=== PATIENT | female | born 1945 | race Caucasian/White ===

== ENCOUNTER 2017-08-09 10:40 | Emergency (ER) | payer MEDICARE, OTHER ==
[2017-08-09] MEDS: SOD CHLORIDE 0.9% 1,000 ML IV (11:23)
[2017-08-09] MEDS: ONDANSETRON 4 MG INJ IV ×3 (11:24→13:02)
[2017-08-09] MEDS: morphine 4 MG/ML VIAL IV (11:24)
[2017-08-09 11:30] LABS: ADD MAN DIFF? NO
[2017-08-09 11:32] LABS: BASOPHIL # 0.1 10^3/ul (0.0-0.1); BASOPHILS % 0.8 % (0.0-2.0); EOSINOPHILS # 0.7 10^3/ul (0.0-0.5); EOSINOPHILS % 8.1 % (0.0-7.0); HEMATOCRIT 32.9 % (37.0-47.0); LYMPHOCYTES # 2.4 10^3/ul (0.8-2.9); LYMPHOCYTES % 26.4 % (15.0-51.0); MEAN CORPUSCULAR HGB CONC 30.4 g/dl (32.0-37.0); MEAN CORPUSCULAR VOLUME 82.3 fl (82.0-101.0); MEAN PLATELET VOLUME 10.3 fl (7.4-10.4); MONOCYTE # 0.7 10^3/ul (0.3-0.9); MONOCYTES % 7.5 % (0.0-11.0); NEUTROPHIL # 5.2 10^3/ul (1.6-7.5); PLATELET COUNT 308 10^3/UL (140-415); RED CELL DISTRIBUTION WIDTH 17.9 % (11.5-14.5)
[2017-08-09 11:32] LABS: WHITE BLOOD COUNT 9.1 10^3/ul (4.8-10.8)
[2017-08-09 11:52] LABS: ALANINE AMINOTRANSFERASE 24 IU/L (13-69); ALBUMIN 3.7 g/dl (3.3-4.9); ALBUMIN/GLOBULIN RATIO 1.23; ALKALINE PHOSPHATASE 77 IU/L (42-121); AMYLASE 73 U/L (11-123); ANION GAP 13 (8-16); ASPARTATE AMINO TRANSFERASE 19 IU/L (15-46); BLOOD UREA NITROGEN 20 mg/dl (7-20); CALCIUM 8.4 mg/dl (8.4-10.2); CARBON DIOXIDE 27 mmol/L (21-31); CHLORIDE 106 mmol/L (97-110); CREATININE 0.78 mg/dl (0.44-1.00); GLUCOSE 100 mg/dl (70-220); LIPASE 69 U/L (23-300); POTASSIUM 4.3 mmol/L (3.5-5.1); SODIUM 142 mmol/L (135-144); TOTAL PROTEIN 6.7 g/dl (6.1-8.1)
[2017-08-09 12:04] LABS: TROPONIN-I < 0.012 ng/ml (0.00-0.12)
[2017-08-09] MEDS: HYDROmorphONE 1 MG/ML SYG IV ×2 (12:32→13:02)
== END 2017-08-09 14:13 | disposition home or self-care (01) ==
LOC: E/R 10:40
DX: R53.1 Weakness (principal); M79.7 Fibromyalgia; J44.9 Chronic obstructive pulmonary disease, unspecified; F17.210 Nicotine dependence, cigarettes, uncomplicated; R40.2142 Coma scale, eyes open, spontaneous, at arrival to emergency department; R40.2252 Coma scale, best verbal response, oriented, at arrival to emergency department; R40.2362 Coma scale, best motor response, obeys commands, at arrival to emergency department; Z79.82 Long term (current) use of aspirin
CPT/HCPCS: 36415; 80053; 82150; 83690; 84484; 85025; 96374; 96375; 96376; 99284-25

== ENCOUNTER 2017-08-14 13:44 | Inpatient (IN) | payer MEDICARE, OTHER ==
[2017-08-14 17:56] LABS: ADD MAN DIFF? NO
[2017-08-14 18:00] LABS: WHITE BLOOD COUNT 18.3 10^3/ul (4.8-10.8)
[2017-08-14 18:00] LABS: BASOPHIL # 0.1 10^3/ul (0.0-0.1); BASOPHILS % 0.4 % (0.0-2.0); EOSINOPHILS # 0.4 10^3/ul (0.0-0.5); EOSINOPHILS % 2.2 % (0.0-7.0); HEMATOCRIT 34.6 % (37.0-47.0); HEMOGLOBIN 10.3 g/dl (12.0-16.0); LYMPHOCYTES # 2.9 10^3/ul (0.8-2.9); MEAN CORPUSCULAR HEMOGLOBIN 24.4 pg (29.0-33.0); MEAN CORPUSCULAR HGB CONC 29.8 g/dl (32.0-37.0); MONOCYTE # 1.2 10^3/ul (0.3-0.9); MONOCYTES % 6.8 % (0.0-11.0); NEUTROPHIL # 13.6 10^3/ul (1.6-7.5); NEUTROPHILS % 74.2 % (39.0-77.0); PLATELET COUNT 370 10^3/UL (140-415); RED BLOOD COUNT 4.22 10^6/ul (4.20-5.40); RED CELL DISTRIBUTION WIDTH 18.1 % (11.5-14.5)
[2017-08-14 18:20] LABS: ALANINE AMINOTRANSFERASE 24 IU/L (13-69); ALBUMIN/GLOBULIN RATIO 1.21; ALKALINE PHOSPHATASE 89 IU/L (42-121); ANION GAP 12 (8-16); ASPARTATE AMINO TRANSFERASE 15 IU/L (15-46); BILIRUBIN,INDIRECT 0.1 mg/dl (0-1.1); BILIRUBIN,TOTAL 0.1 mg/dl (0.2-1.3); BLOOD UREA NITROGEN 18 mg/dl (7-20); CALCIUM 8.7 mg/dl (8.4-10.2); CARBON DIOXIDE 28 mmol/L (21-31); CHLORIDE 108 mmol/L (97-110); CREATININE 0.92 mg/dl (0.44-1.00); GLUCOSE 96 mg/dl (70-220); POTASSIUM 3.6 mmol/L (3.5-5.1); SODIUM 144 mmol/L (135-144); TOTAL PROTEIN 7.3 g/dl (6.1-8.1)
[2017-08-14 18:43] LABS: TROPONIN-I < 0.012 ng/ml (0.00-0.12)
[2017-08-14 19:19] LABS: ADD UMIC YES; UR ASCORBIC ACID NEGATIVE (NEGATIVE); UR BACTERIA FEW /HPF (NONE SEEN); UR BILIRUBIN (Dip) NEGATIVE (NEGATIVE); UR BLOOD (Dip) 2+ mg/dL (NEGATIVE); UR CLARITY SLIGHTLY CLOUDY (CLEAR); UR COLOR YELLOW (YELLOW); UR GLUCOSE (Dip) NEGATIVE (NEGATIVE); UR KETONES (Dip) NEGATIVE (NEGATIVE); UR LEUKOCYTE ESTERASE (Dip) 1+ Leu/ul (NEGATIVE); UR NITRITE (Dip) NEGATIVE (NEGATIVE); UR RBC 147 /HPF (0-5); UR SPECIFIC GRAVITY (Dip) 1.014 (1.003-1.030); UR SQUAMOUS EPITHELIAL CELL MODERATE /HPF (FEW); UR TOTAL PROTEIN (Dip) 3+ mg/dl (NEGATIVE); UR UROBILINOGEN (Dip) 2+ mg/dL (NEGATIVE); UR WBC 44 /HPF (0-5)
[2017-08-14] MEDS: KETOROLAC 15 MG INJ IV (19:24)
[2017-08-14] MEDS ORDERED: ACETAMINOPHEN 325 MG TAB PO (19:30)
[2017-08-14] MEDS ORDERED: ONDANSETRON 4 MG INJ IV (19:30)
[2017-08-14] MEDS ORDERED: ALBUTEROL/IPRATROPIUM (NEB) 3 ML AMP HHN ×2 (22:00→23:07)
[2017-08-14] MEDS ORDERED: IPRATROPIUM (NEB) 0.5 MG/2.5 ML AMP HHN ×2 (22:00)
[2017-08-14] MEDS ORDERED: TIZANIDINE 4 MG TAB PO (22:30)
[2017-08-14] MEDS: DOCUSATE SODIUM 100 MG CAP PO (23:15)
[2017-08-14] MEDS: LEVOFLOXACIN 500MG/D5W (PMX) 100 ML IVPB (23:15)
[2017-08-14] MEDS: clonAZEPAM 0.5 MG TAB PO (23:16)
[2017-08-14] MEDS: ATORVASTATIN 40 MG TAB PO (23:16)
[2017-08-14] MEDS: hydrOXYzine HCL 25 MG TAB PO (23:16)
[2017-08-14] MEDS ORDERED: hydrOXYzine HCL 50 MG TAB PO (23:30)
[2017-08-14] MEDS ORDERED: ACETAMINOPHEN 500 MG TAB PO (23:30)
[2017-08-14] MEDS: ALBUTEROL/IPRATROPIUM (NEB) 3 ML AMP HHN (23:46)
[2017-08-15] MEDS: CELECOXIB 200 MG CAP PO ×3 (00:28→20:43)
[2017-08-15] MEDS: ARIPIPRAZOLE 5 MG TAB PO ×2 (00:28→20:47)
[2017-08-15] MEDS: ALBUTEROL/IPRATROPIUM (NEB) 3 ML AMP HHN ×4 (02:49→20:18)
[2017-08-15] MEDS: PANTOPRAZOLE (EC) 40 MG TAB PO (05:06)
[2017-08-15] MEDS: LORAZEPAM 2 MG INJ IV ×2 (05:06→14:49)
[2017-08-15 06:33] LABS: ADD MAN DIFF? NO
[2017-08-15 06:39] LABS: WHITE BLOOD COUNT 11.8 10^3/ul (4.8-10.8)
[2017-08-15 06:39] LABS: BASOPHILS % 0.3 % (0.0-2.0); EOSINOPHILS # 0.5 10^3/ul (0.0-0.5); EOSINOPHILS % 3.9 % (0.0-7.0); HEMATOCRIT 30.7 % (37.0-47.0); HEMOGLOBIN 9.6 g/dl (12.0-16.0); LYMPHOCYTES # 2.5 10^3/ul (0.8-2.9); LYMPHOCYTES % 21.1 % (15.0-51.0); MEAN CORPUSCULAR HEMOGLOBIN 25.1 pg (29.0-33.0); MEAN CORPUSCULAR HGB CONC 31.3 g/dl (32.0-37.0); MEAN CORPUSCULAR VOLUME 80.4 fl (82.0-101.0); MEAN PLATELET VOLUME 9.4 fl (7.4-10.4); MONOCYTE # 1.1 10^3/ul (0.3-0.9); NEUTROPHIL # 7.7 10^3/ul (1.6-7.5); NEUTROPHILS % 65.4 % (39.0-77.0); PLATELET COUNT 333 10^3/UL (140-415); RED BLOOD COUNT 3.82 10^6/ul (4.20-5.40); RED CELL DISTRIBUTION WIDTH 17.7 % (11.5-14.5)
[2017-08-15 07:06] LABS: ANION GAP 15 (8-16); BLOOD UREA NITROGEN 22 mg/dl (7-20); CALCIUM 8.8 mg/dl (8.4-10.2); CARBON DIOXIDE 23 mmol/L (21-31); CHLORIDE 109 mmol/L (97-110); CREATININE 0.82 mg/dl (0.44-1.00); GLUCOSE 94 mg/dl (70-220); POTASSIUM 3.6 mmol/L (3.5-5.1); SODIUM 143 mmol/L (135-144)
[2017-08-15 07:20] LABS: HEMOGLOBIN A1C 5.6 % (0-5.9)
[2017-08-15] MEDS: ESCITALOPRAM 10 MG TAB PO (08:36)
[2017-08-15] MEDS: DOCUSATE SODIUM 100 MG CAP PO ×2 (08:36→20:43)
[2017-08-15] MEDS: clonAZEPAM 0.5 MG TAB PO ×2 (08:36→20:40)
[2017-08-15] MEDS: ASPIRIN (EC) 325 MG TAB PO (08:36)
[2017-08-15] MEDS: AMLODIPINE 5 MG TAB PO (08:36)
[2017-08-15] MEDS: BENAZEPRIL 10 MG TAB PO (08:37)
[2017-08-15] MEDS: ISOSORBIDE MONONITRATE(SR)30 MG TAB PO (08:37)
[2017-08-15] MEDS: METHYLPREDNISOLONE 125 MG INJ IV (08:41)
[2017-08-15] MEDS: ENOXAPARIN 40 MG/0.4 ML SYG SC (08:43)
[2017-08-15] MEDS ORDERED: FUROSEMIDE 20 MG TAB PO (09:00)
[2017-08-15] MEDS ORDERED: METHYLPREDNISOLONE 125 MG INJ IV (09:00)
[2017-08-15] MEDS: oxyCODONE 5 MG TAB PO (18:01)
[2017-08-15 19:22] LABS: HEPATITIS B SURFACE ANTIBODY POSITIVE (NEGATIVE); HEPATITIS C VIRAL ANTIBODY NEGATIVE (NEGATIVE)
[2017-08-15 19:22] LABS: HIV 1&2 ANTIBODY NEGATIVE (NEGATIVE)
[2017-08-15] MEDS: ATORVASTATIN 40 MG TAB PO (20:43)
[2017-08-15] MEDS: hydrOXYzine HCL 25 MG TAB PO (20:43)
[2017-08-15] MEDS: LEVOFLOXACIN 500MG/D5W (PMX) 100 ML IVPB (22:46)
[2017-08-16] MEDS: oxyCODONE 5 MG TAB PO ×3 (01:07→23:24)
[2017-08-16] MEDS: ALBUTEROL/IPRATROPIUM (NEB) 3 ML AMP HHN ×4 (01:17→20:00)
[2017-08-16] MEDS: PANTOPRAZOLE (EC) 40 MG TAB PO (05:35)
[2017-08-16 06:18] LABS: ADD MAN DIFF? NO
[2017-08-16 06:26] LABS: BASOPHILS % 0.1 % (0.0-2.0); EOSINOPHILS % 0.3 % (0.0-7.0); HEMATOCRIT 29.1 % (37.0-47.0); LYMPHOCYTES # 2.1 10^3/ul (0.8-2.9); LYMPHOCYTES % 14.1 % (15.0-51.0); MEAN CORPUSCULAR HEMOGLOBIN 25.2 pg (29.0-33.0); MEAN CORPUSCULAR HGB CONC 30.9 g/dl (32.0-37.0); MEAN CORPUSCULAR VOLUME 81.5 fl (82.0-101.0); MEAN PLATELET VOLUME 10.5 fl (7.4-10.4); MONOCYTE # 1.2 10^3/ul (0.3-0.9); MONOCYTES % 7.8 % (0.0-11.0); NEUTROPHIL # 11.6 10^3/ul (1.6-7.5); NEUTROPHILS % 77.3 % (39.0-77.0); PLATELET COUNT 381 10^3/UL (140-415); RED BLOOD COUNT 3.57 10^6/ul (4.20-5.40); RED CELL DISTRIBUTION WIDTH 17.9 % (11.5-14.5)
[2017-08-16 06:26] LABS: WHITE BLOOD COUNT 15.1 10^3/ul (4.8-10.8)
[2017-08-16 07:15] LABS: LACTATE DEHYDROGENASE 272 IU/L (313-618)
[2017-08-16 07:18] LABS: IRON 13 ug/dl (35-150)
[2017-08-16 07:26] LABS: ANION GAP 12 (8-16); BLOOD UREA NITROGEN 21 mg/dl (7-20); CARBON DIOXIDE 27 mmol/L (21-31); CHLORIDE 106 mmol/L (97-110); CREATININE 0.85 mg/dl (0.44-1.00); GLUCOSE 104 mg/dl (70-220); POTASSIUM 4.1 mmol/L (3.5-5.1); SODIUM 141 mmol/L (135-144)
[2017-08-16 07:28] LABS: % IRON SATURATION 3 % SAT (22-52); TOTAL IRON BINDING CAPACITY 392 ug/dl (241-421)
[2017-08-16 07:29] LABS: RETICULOCYTE COUNT # 0.076 X10^6 (0.020-0.110); RETICULOCYTE COUNT % 2.1 % (0.5-1.5)
[2017-08-16 07:29] LABS: RETICULOCYTE RBC 3.57
[2017-08-16 07:31] LABS: THYROID STIMULATING HORMONE 0.588 MIU/L (0.465-4.680)
[2017-08-16 07:35] LABS: FERRITIN 3.2 ng/ml (11.1-264.0)
[2017-08-16] MEDS: ISOSORBIDE MONONITRATE(SR)30 MG TAB PO (08:51)
[2017-08-16] MEDS: CELECOXIB 200 MG CAP PO ×2 (08:51→20:08)
[2017-08-16] MEDS: ESCITALOPRAM 10 MG TAB PO (08:52)
[2017-08-16] MEDS: ASPIRIN (EC) 325 MG TAB PO (08:52)
[2017-08-16] MEDS: BENAZEPRIL 10 MG TAB PO (08:52)
[2017-08-16] MEDS: METHYLPREDNISOLONE 125 MG INJ IV (08:52)
[2017-08-16] MEDS: AMLODIPINE 5 MG TAB PO (08:53)
[2017-08-16] MEDS: clonAZEPAM 0.5 MG TAB PO ×2 (08:53→20:08)
[2017-08-16] MEDS: ENOXAPARIN 40 MG/0.4 ML SYG SC (08:54)
[2017-08-16] MEDS: DOCUSATE SODIUM 100 MG CAP PO ×2 (09:00→20:07)
[2017-08-16] MEDS: LORAZEPAM 1 MG TAB PO ×2 (11:35→17:53)
[2017-08-16] MEDS: NICOTINE (7 MG/24 HR) PATCH TRANSDERM (13:08)
[2017-08-16] MEDS: ARIPIPRAZOLE 5 MG TAB PO (20:08)
[2017-08-16] MEDS: ATORVASTATIN 40 MG TAB PO (20:08)
[2017-08-16] MEDS: hydrOXYzine HCL 25 MG TAB PO (20:08)
[2017-08-16] MEDS: LEVOFLOXACIN 500MG/D5W (PMX) 100 ML IVPB (23:16)
[2017-08-17] MEDS: LORAZEPAM 1 MG TAB PO ×2 (00:09→22:18)
[2017-08-17] MEDS: ALBUTEROL/IPRATROPIUM (NEB) 3 ML AMP HHN ×4 (01:37→20:05)
[2017-08-17] MEDS: PANTOPRAZOLE (EC) 40 MG TAB PO (06:14)
[2017-08-17 06:27] LABS: ADD MAN DIFF? NO
[2017-08-17 06:33] LABS: WHITE BLOOD COUNT 11.3 10^3/ul (4.8-10.8)
[2017-08-17 06:33] LABS: BASOPHIL # 0.1 10^3/ul (0.0-0.1); BASOPHILS % 0.5 % (0.0-2.0); EOSINOPHILS # 0.6 10^3/ul (0.0-0.5); EOSINOPHILS % 5.5 % (0.0-7.0); HEMATOCRIT 29.9 % (37.0-47.0); HEMOGLOBIN 9.3 g/dl (12.0-16.0); LYMPHOCYTES # 3.2 10^3/ul (0.8-2.9); LYMPHOCYTES % 28.4 % (15.0-51.0); MEAN CORPUSCULAR HEMOGLOBIN 25.3 pg (29.0-33.0); MEAN CORPUSCULAR HGB CONC 31.1 g/dl (32.0-37.0); MEAN CORPUSCULAR VOLUME 81.3 fl (82.0-101.0); MEAN PLATELET VOLUME 10.4 fl (7.4-10.4); MONOCYTE # 0.9 10^3/ul (0.3-0.9); MONOCYTES % 7.6 % (0.0-11.0); NEUTROPHIL # 6.5 10^3/ul (1.6-7.5); NEUTROPHILS % 57.6 % (39.0-77.0); PLATELET COUNT 396 10^3/UL (140-415); RED BLOOD COUNT 3.68 10^6/ul (4.20-5.40); RED CELL DISTRIBUTION WIDTH 17.8 % (11.5-14.5)
[2017-08-17 06:41] LABS: ANION GAP 15 (8-16); BLOOD UREA NITROGEN 24 mg/dl (7-20); CALCIUM 8.3 mg/dl (8.4-10.2); CARBON DIOXIDE 26 mmol/L (21-31); CHLORIDE 108 mmol/L (97-110); CREATININE 1.02 mg/dl (0.44-1.00); GLUCOSE 89 mg/dl (70-220); POTASSIUM 3.8 mmol/L (3.5-5.1); SODIUM 145 mmol/L (135-144)
[2017-08-17] MEDS: METHYLPREDNISOLONE 125 MG INJ IV (10:27)
[2017-08-17] MEDS: ASPIRIN (EC) 325 MG TAB PO (10:28)
[2017-08-17] MEDS: ISOSORBIDE MONONITRATE(SR)30 MG TAB PO (10:28)
[2017-08-17] MEDS: DOCUSATE SODIUM 100 MG CAP PO ×2 (10:28→20:39)
[2017-08-17] MEDS: CELECOXIB 200 MG CAP PO ×2 (10:28→20:38)
[2017-08-17] MEDS: clonAZEPAM 0.5 MG TAB PO ×2 (10:29→20:38)
[2017-08-17] MEDS: BENAZEPRIL 10 MG TAB PO (10:29)
[2017-08-17] MEDS: AMLODIPINE 5 MG TAB PO (10:29)
[2017-08-17] MEDS: ESCITALOPRAM 10 MG TAB PO (10:29)
[2017-08-17] MEDS: NICOTINE (7 MG/24 HR) PATCH TRANSDERM (10:30)
[2017-08-17] MEDS: traMADol 50 MG TAB PO (10:30)
[2017-08-17] MEDS: ENOXAPARIN 40 MG/0.4 ML SYG SC (10:31)
[2017-08-17] MEDS: oxyCODONE 5 MG TAB PO ×3 (13:32→22:18)
[2017-08-17] MEDS: ARIPIPRAZOLE 5 MG TAB PO (20:37)
[2017-08-17] MEDS: ATORVASTATIN 40 MG TAB PO (20:38)
[2017-08-17] MEDS: hydrOXYzine HCL 25 MG TAB PO (20:39)
[2017-08-17] MEDS: LEVOFLOXACIN 500MG/D5W (PMX) 100 ML IVPB (22:59)
[2017-08-18] MEDS: ALBUTEROL/IPRATROPIUM (NEB) 3 ML AMP HHN ×3 (02:33→14:00)
[2017-08-18] MEDS: PANTOPRAZOLE (EC) 40 MG TAB PO (05:48)
[2017-08-18 06:35] LABS: ADD MAN DIFF? NO
[2017-08-18 06:45] LABS: BASOPHILS % 0.2 % (0.0-2.0); EOSINOPHILS # 0.1 10^3/ul (0.0-0.5); EOSINOPHILS % 0.6 % (0.0-7.0); HEMATOCRIT 31.8 % (37.0-47.0); HEMOGLOBIN 9.6 g/dl (12.0-16.0); LYMPHOCYTES % 16.5 % (15.0-51.0); MEAN CORPUSCULAR HEMOGLOBIN 24.7 pg (29.0-33.0); MEAN CORPUSCULAR HGB CONC 30.2 g/dl (32.0-37.0); MEAN CORPUSCULAR VOLUME 81.7 fl (82.0-101.0); MONOCYTE # 0.8 10^3/ul (0.3-0.9); MONOCYTES % 6.9 % (0.0-11.0); NEUTROPHIL # 9.2 10^3/ul (1.6-7.5); NEUTROPHILS % 75.6 % (39.0-77.0); PLATELET COUNT 430 10^3/UL (140-415); RED BLOOD COUNT 3.89 10^6/ul (4.20-5.40); RED CELL DISTRIBUTION WIDTH 17.9 % (11.5-14.5)
[2017-08-18 06:45] LABS: WHITE BLOOD COUNT 12.2 10^3/ul (4.8-10.8)
[2017-08-18 07:06] LABS: ANION GAP 12 (8-16); BLOOD UREA NITROGEN 27 mg/dl (7-20); CALCIUM 8.9 mg/dl (8.4-10.2); CARBON DIOXIDE 24 mmol/L (21-31); CHLORIDE 109 mmol/L (97-110); CREATININE 0.93 mg/dl (0.44-1.00); GLUCOSE 92 mg/dl (70-220); POTASSIUM 3.7 mmol/L (3.5-5.1); SODIUM 141 mmol/L (135-144)
[2017-08-18] MEDS: LORAZEPAM 1 MG TAB PO (07:42)
[2017-08-18] MEDS: oxyCODONE 5 MG TAB PO (07:43)
[2017-08-18] MEDS: METHYLPREDNISOLONE 125 MG INJ IV (08:53)
[2017-08-18] MEDS: ASPIRIN (EC) 325 MG TAB PO (08:54)
[2017-08-18] MEDS: DOCUSATE SODIUM 100 MG CAP PO (08:54)
[2017-08-18] MEDS: ESCITALOPRAM 10 MG TAB PO (08:54)
[2017-08-18] MEDS: AMLODIPINE 5 MG TAB PO (08:55)
[2017-08-18] MEDS: BENAZEPRIL 10 MG TAB PO (08:55)
[2017-08-18] MEDS: ISOSORBIDE MONONITRATE(SR)30 MG TAB PO (08:55)
[2017-08-18] MEDS: clonAZEPAM 0.5 MG TAB PO (08:56)
[2017-08-18] MEDS: CELECOXIB 200 MG CAP PO (08:56)
[2017-08-18] MEDS: ENOXAPARIN 40 MG/0.4 ML SYG SC (08:57)
[2017-08-18] MEDS: NICOTINE (7 MG/24 HR) PATCH TRANSDERM (09:00)
[2017-08-18] MEDS: traMADol 50 MG TAB PO (12:59)
== END 2017-08-18 14:42 | disposition left against medical advice (07) | DRG 92 ==
LOC: E/R 13:44 → PP2 20:44
DX: R27.0 Ataxia, unspecified (principal); J44.1 Chronic obstructive pulmonary disease with (acute) exacerbation; N39.0 Urinary tract infection, site not specified; I10 Essential (primary) hypertension; Z91.81 History of falling; I25.10 Atherosclerotic heart disease of native coronary artery without angina pectoris; Z95.5 Presence of coronary angioplasty implant and graft; F41.9 Anxiety disorder, unspecified; F32.9 Major depressive disorder, single episode, unspecified; G89.4 Chronic pain syndrome; M79.7 Fibromyalgia; F31.9 Bipolar disorder, unspecified; F17.210 Nicotine dependence, cigarettes, uncomplicated; E78.5 Hyperlipidemia, unspecified
CPT/HCPCS: 70450; 71045; 72125; 80048; 80053; 81001; 82306; 82607; 82728; 82746; 83036; 83540; 83615; 84443; 84484; 85025; 85045; 86703; 86706; 86803; 87040; 87086; 93005; 94640; 96374; 97163; 99285-25; G0378

== ENCOUNTER 2018-02-01 08:29 | Inpatient (IN) | payer MEDICARE, OTHER ==
[2018-02-01 09:11] LABS: ADD MAN DIFF? NO
[2018-02-01 09:12] LABS: ABNORMAL IP MESSAGE 1; BASOPHIL # 0.1 10^3/ul (0.0-0.1); BASOPHILS % 0.4 % (0.0-2.0); EOSINOPHILS % 0.1 % (0.0-7.0); HEMATOCRIT 34.1 % (37.0-47.0); HEMOGLOBIN 9.6 g/dl (12.0-16.0); LYMPHOCYTES % 7.4 % (15.0-51.0); MEAN CORPUSCULAR HEMOGLOBIN 22.3 pg (29.0-33.0); MEAN CORPUSCULAR HGB CONC 28.2 g/dl (32.0-37.0); MEAN CORPUSCULAR VOLUME 79.1 fl (82.0-101.0); MEAN PLATELET VOLUME 9.5 fl (7.4-10.4); MONOCYTE # 0.9 10^3/ul (0.3-0.9); MONOCYTES % 7.2 % (0.0-11.0); NEUTROPHILS % 84.4 % (39.0-77.0); PLATELET COUNT 408 10^3/UL (140-415); RED BLOOD COUNT 4.31 10^6/ul (4.20-5.40); RED CELL DISTRIBUTION WIDTH 18.9 % (11.5-14.5)
[2018-02-01 09:56] LABS: LACTIC ACID 1.6 mmol/L (0.5-2.0)
[2018-02-01 09:57] LABS: ALANINE AMINOTRANSFERASE 11 IU/L (13-69); ALBUMIN 3.9 g/dl (3.3-4.9); ALBUMIN/GLOBULIN RATIO 1.11; ALKALINE PHOSPHATASE 98 IU/L (42-121); ANION GAP 11 (8-16); ASPARTATE AMINO TRANSFERASE 42 IU/L (15-46); BILIRUBIN,INDIRECT 0.4 mg/dl (0-1.1); BILIRUBIN,TOTAL 0.4 mg/dl (0.2-1.3); BLOOD UREA NITROGEN 16 mg/dl (7-20); CALCIUM 8.8 mg/dl (8.4-10.2); CARBON DIOXIDE 29 mmol/L (21-31); CHLORIDE 106 mmol/L (97-110); CREATINE KINASE 1037 IU/L (23-200); CREATININE 0.64 mg/dl (0.44-1.00); GLUCOSE 112 mg/dl (70-220); SODIUM 142 mmol/L (135-144); TOTAL PROTEIN 7.4 g/dl (6.1-8.1)
[2018-02-01] MEDS: SOD CHLORIDE 0.9% 1,000 ML IV ×4 (10:01→21:14)
[2018-02-01 10:08] LABS: CK INDEX 0.7; TROPONIN-I < 0.010 ng/ml (0.000-0.120)
[2018-02-01 10:53] LABS: INR 1.14; PROTIME 14.8 Sec (11.9-14.9); PT RATIO 1.2
[2018-02-01 10:54] LABS: PARTIAL THROMBOPLASTIN TIME 33.5 Sec (25.0-35.0)
[2018-02-01] MEDS: NALOXONE (0.4 MG/ML) INJ IV (12:00)
[2018-02-01] MEDS ORDERED: ONDANSETRON 4 MG INJ IV (12:30)
[2018-02-01] MEDS: morphine 2 MG INJ IV ×2 (17:02→21:14)
[2018-02-01] MEDS: ONDANSETRON 4 MG INJ IV (17:02)
[2018-02-01] MEDS: ACETAMINOPHEN 325 MG TAB PO (20:15)
[2018-02-01] MEDS ORDERED: hydrOXYzine HCL 50 MG TAB PO (21:00)
[2018-02-01] MEDS: CELECOXIB 200 MG CAP PO (22:40)
[2018-02-01] MEDS: DOCUSATE SODIUM 100 MG CAP PO (22:40)
[2018-02-01] MEDS: ARIPIPRAZOLE 5 MG TAB PO (22:40)
[2018-02-01] MEDS: ATORVASTATIN 40 MG TAB PO (22:41)
[2018-02-01] MEDS: ESCITALOPRAM 10 MG TAB PO (22:43)
[2018-02-01] MEDS: clonAZEPAM 0.5 MG TAB PO (22:44)
[2018-02-01] MEDS: BENAZEPRIL 10 MG TAB PO (22:51)
[2018-02-01] MEDS: AMLODIPINE 5 MG TAB PO (22:51)
[2018-02-02] MEDS: morphine 2 MG INJ IV (03:41)
[2018-02-02] MEDS: SOD CHLORIDE 0.9% 1,000 ML IV (06:25)
[2018-02-02] MEDS: PANTOPRAZOLE (EC) 40 MG TAB PO (06:25)
[2018-02-02 06:38] LABS: ADD MAN DIFF? NO
[2018-02-02 06:44] LABS: WHITE BLOOD COUNT 10.7 10^3/ul (4.8-10.8)
[2018-02-02 06:44] LABS: ABNORMAL IP MESSAGE 1; BASOPHIL # 0.1 10^3/ul (0.0-0.1); BASOPHILS % 0.7 % (0.0-2.0); EOSINOPHILS # 0.3 10^3/ul (0.0-0.5); EOSINOPHILS % 2.8 % (0.0-7.0); HEMATOCRIT 29.3 % (37.0-47.0); HEMOGLOBIN 8.1 g/dl (12.0-16.0); LYMPHOCYTES # 1.9 10^3/ul (0.8-2.9); MEAN CORPUSCULAR HGB CONC 27.6 g/dl (32.0-37.0); MEAN CORPUSCULAR VOLUME 79.4 fl (82.0-101.0); MEAN PLATELET VOLUME 9.7 fl (7.4-10.4); MONOCYTE # 1.2 10^3/ul (0.3-0.9); MONOCYTES % 10.9 % (0.0-11.0); NEUTROPHIL # 7.2 10^3/ul (1.6-7.5); NEUTROPHILS % 67.3 % (39.0-77.0); PLATELET COUNT 324 10^3/UL (140-415); RED BLOOD COUNT 3.69 10^6/ul (4.20-5.40)
[2018-02-02 06:45] LABS: POSITIVE DIFF @See below
[2018-02-02 06:58] LABS: HEMOGLOBIN A1C 5.6 % (0-5.9)
[2018-02-02 07:04] LABS: ALANINE AMINOTRANSFERASE 22 IU/L (13-69); ALBUMIN 3.1 g/dl (3.3-4.9); ALBUMIN/GLOBULIN RATIO 1.06; ALKALINE PHOSPHATASE 72 IU/L (42-121); ANION GAP 9 (8-16); ASPARTATE AMINO TRANSFERASE 47 IU/L (15-46); BILIRUBIN,INDIRECT 0.4 mg/dl (0-1.1); BILIRUBIN,TOTAL 0.4 mg/dl (0.2-1.3); BLOOD UREA NITROGEN 10 mg/dl (7-20); CALCIUM 7.9 mg/dl (8.4-10.2); CARBON DIOXIDE 27 mmol/L (21-31); CHLORIDE 109 mmol/L (97-110); CREATININE 0.56 mg/dl (0.44-1.00); GLUCOSE 88 mg/dl (70-220); POTASSIUM 3.7 mmol/L (3.5-5.1); SODIUM 141 mmol/L (135-144)
[2018-02-02 07:37] LABS: ADD UMIC YES; UR ASCORBIC ACID NEGATIVE (NEGATIVE); UR BACTERIA MODERATE /HPF (NONE SEEN); UR BILIRUBIN (Dip) NEGATIVE (NEGATIVE); UR BLOOD (Dip) 1+ mg/dL (NEGATIVE); UR CLARITY CLOUDY (CLEAR); UR COLOR YELLOW (YELLOW); UR GLUCOSE (Dip) NEGATIVE (NEGATIVE); UR KETONES (Dip) NEGATIVE (NEGATIVE); UR LEUKOCYTE ESTERASE (Dip) 3+ Leu/ul (NEGATIVE); UR MUCUS FEW /HPF (NONE SEEN); UR NITRITE (Dip) NEGATIVE (NEGATIVE); UR RBC 4 /HPF (0-5); UR SPECIFIC GRAVITY (Dip) 1.016 (1.003-1.030); UR SQUAMOUS EPITHELIAL CELL FEW /HPF (FEW); UR TOTAL PROTEIN (Dip) NEGATIVE (NEGATIVE); UR UROBILINOGEN (Dip) NEGATIVE (NEGATIVE); UR WBC > 182 /HPF (0-5)
[2018-02-02 07:51] LABS: AMPHETAMINE/METHAMPHETAMINE Negative (NEGATIVE); BARBITURATES Negative (NEGATIVE); BENZODIAZEPINES Positive (NEGATIVE); CANNABINOIDS Negative (NEGATIVE); COCAINE Negative (NEGATIVE); OPIATES Negative (NEGATIVE)
[2018-02-02] MEDS: clonAZEPAM 0.5 MG TAB PO ×2 (08:54→20:40)
[2018-02-02] MEDS: BENAZEPRIL 10 MG TAB PO (08:54)
[2018-02-02] MEDS: ISOSORBIDE MONONITRATE(SR)30 MG TAB PO (08:54)
[2018-02-02] MEDS: ESCITALOPRAM 10 MG TAB PO (08:55)
[2018-02-02] MEDS: AMLODIPINE 5 MG TAB PO (08:55)
[2018-02-02] MEDS: FUROSEMIDE 20 MG TAB PO (08:55)
[2018-02-02] MEDS: DOCUSATE SODIUM 100 MG CAP PO ×2 (08:55→20:38)
[2018-02-02] MEDS: ENOXAPARIN 30 MG/0.3 ML SYG SC (09:02)
[2018-02-02] MEDS: CELECOXIB 200 MG CAP PO ×2 (09:03→20:39)
[2018-02-02] MEDS: FUROSEMIDE 20 MG INJ IV (14:56)
[2018-02-02] MEDS: ARIPIPRAZOLE 5 MG TAB PO (20:38)
[2018-02-02] MEDS: ATORVASTATIN 40 MG TAB PO (20:38)
[2018-02-02] MEDS: hydrOXYzine HCL 25 MG TAB PO (20:40)
[2018-02-03] MEDS: TIZANIDINE 4 MG TAB PO (01:41)
[2018-02-03] MEDS: morphine 2 MG INJ IV ×3 (01:41→23:08)
[2018-02-03] MEDS: PANTOPRAZOLE (EC) 40 MG TAB PO (06:11)
[2018-02-03 06:33] LABS: ADD MAN DIFF? NO
[2018-02-03 06:38] LABS: WHITE BLOOD COUNT 9.3 10^3/ul (4.8-10.8)
[2018-02-03 06:38] LABS: ABNORMAL IP MESSAGE 1; BASOPHIL # 0.1 10^3/ul (0.0-0.1); BASOPHILS % 0.5 % (0.0-2.0); EOSINOPHILS # 0.3 10^3/ul (0.0-0.5); EOSINOPHILS % 3.7 % (0.0-7.0); HEMATOCRIT 27.8 % (37.0-47.0); HEMOGLOBIN 7.9 g/dl (12.0-16.0); LYMPHOCYTES # 2.2 10^3/ul (0.8-2.9); LYMPHOCYTES % 23.7 % (15.0-51.0); MEAN CORPUSCULAR HEMOGLOBIN 22.1 pg (29.0-33.0); MEAN CORPUSCULAR HGB CONC 28.4 g/dl (32.0-37.0); MEAN CORPUSCULAR VOLUME 77.9 fl (82.0-101.0); MEAN PLATELET VOLUME 10.2 fl (7.4-10.4); MONOCYTE # 1.1 10^3/ul (0.3-0.9); MONOCYTES % 11.5 % (0.0-11.0); NEUTROPHIL # 5.6 10^3/ul (1.6-7.5); NEUTROPHILS % 60.3 % (39.0-77.0); PLATELET COUNT 363 10^3/UL (140-415); RED BLOOD COUNT 3.57 10^6/ul (4.20-5.40)
[2018-02-03 06:51] LABS: POSITIVE DIFF @See below
[2018-02-03 07:06] LABS: ANION GAP 8 (8-16); BLOOD UREA NITROGEN 9 mg/dl (7-20); CALCIUM 8.1 mg/dl (8.4-10.2); CARBON DIOXIDE 31 mmol/L (21-31); CHLORIDE 103 mmol/L (97-110); CREATININE 0.81 mg/dl (0.44-1.00); GLUCOSE 86 mg/dl (70-220); POTASSIUM 3.3 mmol/L (3.5-5.1); SODIUM 139 mmol/L (135-144)
[2018-02-03] MEDS: ESCITALOPRAM 10 MG TAB PO (09:30)
[2018-02-03] MEDS: DOCUSATE SODIUM 100 MG CAP PO ×2 (09:30→21:29)
[2018-02-03] MEDS: AMLODIPINE 5 MG TAB PO (09:31)
[2018-02-03] MEDS: CELECOXIB 200 MG CAP PO ×2 (09:31→21:30)
[2018-02-03] MEDS: FUROSEMIDE 20 MG TAB PO (09:31)
[2018-02-03] MEDS: ISOSORBIDE MONONITRATE(SR)30 MG TAB PO (09:32)
[2018-02-03] MEDS: BENAZEPRIL 10 MG TAB PO (09:32)
[2018-02-03] MEDS: clonAZEPAM 0.5 MG TAB PO ×2 (09:34→21:30)
[2018-02-03] MEDS: ENOXAPARIN 30 MG/0.3 ML SYG SC (10:25)
[2018-02-03] MEDS: hydrOXYzine HCL 25 MG TAB PO (21:29)
[2018-02-03] MEDS: POTASSIUM CHLORIDE (SR) 20 MEQ TAB PO (21:29)
[2018-02-03] MEDS: ARIPIPRAZOLE 5 MG TAB PO (21:30)
[2018-02-03] MEDS: ATORVASTATIN 40 MG TAB PO (21:30)
[2018-02-04] MEDS: PANTOPRAZOLE (EC) 40 MG TAB PO (06:20)
[2018-02-04] MEDS: CELECOXIB 200 MG CAP PO ×2 (08:49→20:17)
[2018-02-04] MEDS: FUROSEMIDE 20 MG TAB PO (08:50)
[2018-02-04] MEDS: DOCUSATE SODIUM 100 MG CAP PO ×2 (08:50→20:17)
[2018-02-04] MEDS: BENAZEPRIL 10 MG TAB PO (08:50)
[2018-02-04] MEDS: ISOSORBIDE MONONITRATE(SR)30 MG TAB PO (08:50)
[2018-02-04] MEDS: clonAZEPAM 0.5 MG TAB PO ×2 (08:50→20:17)
[2018-02-04] MEDS: AMLODIPINE 5 MG TAB PO (08:50)
[2018-02-04] MEDS: ESCITALOPRAM 10 MG TAB PO (08:50)
[2018-02-04] MEDS: ENOXAPARIN 30 MG/0.3 ML SYG SC (09:02)
[2018-02-04] MEDS: morphine 2 MG INJ IV ×2 (13:18→21:39)
[2018-02-04] MEDS: ATORVASTATIN 40 MG TAB PO (20:17)
[2018-02-04] MEDS: ARIPIPRAZOLE 5 MG TAB PO (20:17)
[2018-02-04] MEDS: hydrOXYzine HCL 25 MG TAB PO (21:00)
[2018-02-05 05:42] LABS: ADD MAN DIFF? NO
[2018-02-05 06:00] LABS: ABNORMAL IP MESSAGE 1; BASOPHIL # 0.1 10^3/ul (0.0-0.1); BASOPHILS % 0.9 % (0.0-2.0); EOSINOPHILS # 0.4 10^3/ul (0.0-0.5); EOSINOPHILS % 5.5 % (0.0-7.0); HEMATOCRIT 30.1 % (37.0-47.0); HEMOGLOBIN 8.6 g/dl (12.0-16.0); LYMPHOCYTES # 2.1 10^3/ul (0.8-2.9); LYMPHOCYTES % 29.6 % (15.0-51.0); MEAN CORPUSCULAR HEMOGLOBIN 22.3 pg (29.0-33.0); MEAN CORPUSCULAR HGB CONC 28.6 g/dl (32.0-37.0); MEAN PLATELET VOLUME 10.3 fl (7.4-10.4); MONOCYTE # 0.9 10^3/ul (0.3-0.9); MONOCYTES % 12.2 % (0.0-11.0); NEUTROPHIL # 3.6 10^3/ul (1.6-7.5); NEUTROPHILS % 51.5 % (39.0-77.0); PLATELET COUNT 432 10^3/UL (140-415); RED BLOOD COUNT 3.86 10^6/ul (4.20-5.40); RED CELL DISTRIBUTION WIDTH 19.3 % (11.5-14.5)
[2018-02-05 06:00] LABS: WHITE BLOOD COUNT 7.1 10^3/ul (4.8-10.8)
[2018-02-05] MEDS: PANTOPRAZOLE (EC) 40 MG TAB PO (06:00)
[2018-02-05 06:14] LABS: POSITIVE DIFF @See below
[2018-02-05 06:32] LABS: ANION GAP 11 (8-16); BLOOD UREA NITROGEN 15 mg/dl (7-20); CALCIUM 8.4 mg/dl (8.4-10.2); CARBON DIOXIDE 30 mmol/L (21-31); CHLORIDE 106 mmol/L (97-110); CREATININE 0.74 mg/dl (0.44-1.00); GLUCOSE 90 mg/dl (70-220); POTASSIUM 3.5 mmol/L (3.5-5.1); SODIUM 143 mmol/L (135-144)
[2018-02-05] MEDS: AMLODIPINE 5 MG TAB PO (09:02)
[2018-02-05] MEDS: clonAZEPAM 0.5 MG TAB PO ×3 (09:02→20:49)
[2018-02-05] MEDS: CELECOXIB 200 MG CAP PO ×2 (09:02→20:50)
[2018-02-05] MEDS: DOCUSATE SODIUM 100 MG CAP PO ×2 (09:02→20:49)
[2018-02-05] MEDS: BENAZEPRIL 10 MG TAB PO (09:03)
[2018-02-05] MEDS: FUROSEMIDE 20 MG TAB PO (09:03)
[2018-02-05] MEDS: ISOSORBIDE MONONITRATE(SR)30 MG TAB PO (09:04)
[2018-02-05] MEDS: ESCITALOPRAM 10 MG TAB PO (09:04)
[2018-02-05] MEDS: ENOXAPARIN 30 MG/0.3 ML SYG SC (09:08)
[2018-02-05] MEDS: morphine LIQ (10 MG/5 ML) CUP PO ×2 (12:42→22:19)
[2018-02-05] MEDS: TIZANIDINE 4 MG TAB PO ×2 (14:46→22:02)
[2018-02-05 15:10] LABS: CREATINE KINASE 152 IU/L (23-200)
[2018-02-05] MEDS: ARIPIPRAZOLE 5 MG TAB PO (20:49)
[2018-02-05] MEDS: ATORVASTATIN 40 MG TAB PO (20:49)
[2018-02-05] MEDS: hydrOXYzine HCL 25 MG TAB PO (20:50)
[2018-02-05] MEDS: DIPHENHYDRAMINE 25 MG CAP PO (20:54)
[2018-02-06] MEDS: PANTOPRAZOLE (EC) 40 MG TAB PO (06:46)
[2018-02-06] MEDS: BENAZEPRIL 10 MG TAB PO (08:58)
[2018-02-06] MEDS: DOCUSATE SODIUM 100 MG CAP PO ×2 (08:58→21:10)
[2018-02-06] MEDS: FUROSEMIDE 20 MG TAB PO (08:58)
[2018-02-06] MEDS: morphine LIQ (10 MG/5 ML) CUP PO ×3 (08:58→22:40)
[2018-02-06] MEDS: clonAZEPAM 0.5 MG TAB PO ×2 (08:58→21:09)
[2018-02-06] MEDS: CELECOXIB 200 MG CAP PO ×2 (08:59→21:09)
[2018-02-06] MEDS: ESCITALOPRAM 10 MG TAB PO (08:59)
[2018-02-06] MEDS: ISOSORBIDE MONONITRATE(SR)30 MG TAB PO (08:59)
[2018-02-06] MEDS: AMLODIPINE 5 MG TAB PO (08:59)
[2018-02-06] MEDS: ENOXAPARIN 30 MG/0.3 ML SYG SC (09:08)
[2018-02-06] MEDS: TIZANIDINE 4 MG TAB PO ×2 (12:11→22:02)
[2018-02-06] MEDS: SOD CHLORIDE 0.9% 500 ML IV (15:51)
[2018-02-06] MEDS: ARIPIPRAZOLE 5 MG TAB PO (21:09)
[2018-02-06] MEDS: hydrOXYzine HCL 25 MG TAB PO (21:14)
[2018-02-06] MEDS: ATORVASTATIN 40 MG TAB PO (21:14)
[2018-02-06] MEDS: DIPHENHYDRAMINE 25 MG CAP PO (22:02)
[2018-02-07 05:02] LABS: ADD MAN DIFF? NO
[2018-02-07 05:08] LABS: WHITE BLOOD COUNT 8.5 10^3/ul (4.8-10.8)
[2018-02-07 05:08] LABS: ABNORMAL IP MESSAGE 1; BASOPHIL # 0.1 10^3/ul (0.0-0.1); BASOPHILS % 0.7 % (0.0-2.0); EOSINOPHILS # 0.4 10^3/ul (0.0-0.5); EOSINOPHILS % 4.6 % (0.0-7.0); HEMATOCRIT 30.9 % (37.0-47.0); HEMOGLOBIN 8.9 g/dl (12.0-16.0); LYMPHOCYTES # 2.6 10^3/ul (0.8-2.9); LYMPHOCYTES % 31.1 % (15.0-51.0); MEAN CORPUSCULAR HEMOGLOBIN 22.1 pg (29.0-33.0); MEAN CORPUSCULAR HGB CONC 28.8 g/dl (32.0-37.0); MEAN CORPUSCULAR VOLUME 76.7 fl (82.0-101.0); MEAN PLATELET VOLUME 9.6 fl (7.4-10.4); MONOCYTE # 0.8 10^3/ul (0.3-0.9); MONOCYTES % 9.3 % (0.0-11.0); NEUTROPHIL # 4.6 10^3/ul (1.6-7.5); NEUTROPHILS % 53.9 % (39.0-77.0); PLATELET COUNT 369 10^3/UL (140-415); RED BLOOD COUNT 4.03 10^6/ul (4.20-5.40); RED CELL DISTRIBUTION WIDTH 19.2 % (11.5-14.5)
[2018-02-07 05:13] LABS: POSITIVE DIFF @See below
[2018-02-07 05:28] LABS: ANION GAP 12 (8-16); BLOOD UREA NITROGEN 15 mg/dl (7-20); CALCIUM 8.9 mg/dl (8.4-10.2); CARBON DIOXIDE 29 mmol/L (21-31); CHLORIDE 105 mmol/L (97-110); CREATININE 0.84 mg/dl (0.44-1.00); GLUCOSE 90 mg/dl (70-220); POTASSIUM 3.8 mmol/L (3.5-5.1); SODIUM 142 mmol/L (135-144)
[2018-02-07] MEDS: PANTOPRAZOLE (EC) 40 MG TAB PO (06:31)
[2018-02-07] MEDS: morphine LIQ (10 MG/5 ML) CUP PO ×3 (06:31→14:27)
[2018-02-07] MEDS: DOCUSATE SODIUM 100 MG CAP PO ×3 (08:48→23:43)
[2018-02-07] MEDS: CELECOXIB 200 MG CAP PO ×3 (08:49→23:43)
[2018-02-07] MEDS: ESCITALOPRAM 10 MG TAB PO (08:49)
[2018-02-07] MEDS: ISOSORBIDE MONONITRATE(SR)30 MG TAB PO (08:49)
[2018-02-07] MEDS: AMLODIPINE 5 MG TAB PO (08:50)
[2018-02-07] MEDS: BENAZEPRIL 10 MG TAB PO (08:50)
[2018-02-07] MEDS: TIZANIDINE 4 MG TAB PO ×3 (08:50→23:42)
[2018-02-07] MEDS: clonAZEPAM 0.5 MG TAB PO ×3 (08:57→23:43)
[2018-02-07] MEDS: ENOXAPARIN 30 MG/0.3 ML SYG SC (08:59)
[2018-02-07] MEDS: FUROSEMIDE 20 MG TAB PO (09:00)
[2018-02-07] MEDS: hydrOXYzine HCL 25 MG TAB PO ×2 (21:00→23:42)
[2018-02-07] MEDS: ATORVASTATIN 40 MG TAB PO ×2 (21:00→23:43)
[2018-02-07] MEDS: ARIPIPRAZOLE 5 MG TAB PO ×2 (21:00→23:42)
[2018-02-07] MEDS ORDERED: LORAZEPAM 0.5 MG TAB PO (22:00)
[2018-02-07] MEDS ORDERED: LORAZEPAM 2 MG INJ IV (23:00)
[2018-02-07 23:14] LABS: RETICULOCYTE RBC 4.14
[2018-02-07 23:14] LABS: RETICULOCYTE COUNT # 0.082 X10^6 (0.020-0.110)
[2018-02-07] MEDS: LORAZEPAM 2 MG INJ IV (23:14)
[2018-02-07 23:37] LABS: IRON 16 ug/dl (35-150)
[2018-02-07 23:37] LABS: LACTATE DEHYDROGENASE 493 IU/L (313-618)
[2018-02-07 23:46] LABS: % IRON SATURATION 4 % SAT (22-52); TOTAL IRON BINDING CAPACITY 399 ug/dl (241-421)
[2018-02-08 00:12] LABS: FERRITIN 4.8 ng/ml (11.1-264.0)
[2018-02-08 00:45] LABS: FOLATE 14.5 ng/ml (2.8-20.0)
[2018-02-08] MEDS: NICOTINE (14 MG/24 HR) PATCH TRANSDERM ×2 (02:07→08:59)
[2018-02-08] MEDS: morphine LIQ (10 MG/5 ML) CUP PO ×3 (05:31→22:02)
[2018-02-08] MEDS: PANTOPRAZOLE (EC) 40 MG TAB PO (05:32)
[2018-02-08] MEDS: BENAZEPRIL 10 MG TAB PO (08:54)
[2018-02-08] MEDS: clonAZEPAM 0.5 MG TAB PO ×2 (08:55→20:13)
[2018-02-08] MEDS: CELECOXIB 200 MG CAP PO ×2 (08:55→20:13)
[2018-02-08] MEDS: DOCUSATE SODIUM 100 MG CAP PO ×2 (08:55→20:13)
[2018-02-08] MEDS: ESCITALOPRAM 10 MG TAB PO (08:55)
[2018-02-08] MEDS: ISOSORBIDE MONONITRATE(SR)30 MG TAB PO (08:56)
[2018-02-08] MEDS: AMLODIPINE 5 MG TAB PO (08:56)
[2018-02-08] MEDS: FUROSEMIDE 20 MG TAB PO (08:57)
[2018-02-08] MEDS: ENOXAPARIN 30 MG/0.3 ML SYG SC (09:00)
[2018-02-08 11:30] LABS: ADD MAN DIFF? NO
[2018-02-08 11:40] LABS: WHITE BLOOD COUNT 9.5 10^3/ul (4.8-10.8)
[2018-02-08 11:40] LABS: ABNORMAL IP MESSAGE 1; BASOPHIL # 0.1 10^3/ul (0.0-0.1); BASOPHILS % 0.6 % (0.0-2.0); EOSINOPHILS # 0.2 10^3/ul (0.0-0.5); EOSINOPHILS % 2.5 % (0.0-7.0); HEMATOCRIT 33.7 % (37.0-47.0); HEMOGLOBIN 9.6 g/dl (12.0-16.0); LYMPHOCYTES # 2.1 10^3/ul (0.8-2.9); LYMPHOCYTES % 21.7 % (15.0-51.0); MEAN CORPUSCULAR HEMOGLOBIN 21.8 pg (29.0-33.0); MEAN CORPUSCULAR HGB CONC 28.5 g/dl (32.0-37.0); MEAN CORPUSCULAR VOLUME 76.6 fl (82.0-101.0); MEAN PLATELET VOLUME 9.8 fl (7.4-10.4); MONOCYTE # 0.8 10^3/ul (0.3-0.9); MONOCYTES % 7.9 % (0.0-11.0); NEUTROPHIL # 6.4 10^3/ul (1.6-7.5); NEUTROPHILS % 67.1 % (39.0-77.0); PLATELET COUNT 450 10^3/UL (140-415); RED CELL DISTRIBUTION WIDTH 19.5 % (11.5-14.5)
[2018-02-08 11:44] LABS: POSITIVE DIFF @See below
[2018-02-08 12:06] LABS: ANION GAP 14 (8-16); BLOOD UREA NITROGEN 10 mg/dl (7-20); CALCIUM 9.3 mg/dl (8.4-10.2); CARBON DIOXIDE 28 mmol/L (21-31); CHLORIDE 103 mmol/L (97-110); CREATININE 0.68 mg/dl (0.44-1.00); GLUCOSE 92 mg/dl (70-220); POTASSIUM 3.8 mmol/L (3.5-5.1); SODIUM 141 mmol/L (135-144)
[2018-02-08] MEDS: SOD FERRIC GLUC COMPLX 125 MG in SOD CHLORIDE 0.9% 100 ML IVPB (17:12)
[2018-02-08] MEDS: ARIPIPRAZOLE 5 MG TAB PO (20:13)
[2018-02-08] MEDS: ATORVASTATIN 40 MG TAB PO (20:13)
[2018-02-08] MEDS: hydrOXYzine HCL 25 MG TAB PO (22:00)
[2018-02-09 05:22] LABS: ADD MAN DIFF? NO
[2018-02-09 05:30] LABS: ABNORMAL IP MESSAGE 1; BASOPHIL # 0.1 10^3/ul (0.0-0.1); BASOPHILS % 0.8 % (0.0-2.0); EOSINOPHILS # 0.4 10^3/ul (0.0-0.5); HEMATOCRIT 28.4 % (37.0-47.0); HEMOGLOBIN 8.2 g/dl (12.0-16.0); LYMPHOCYTES # 2.1 10^3/ul (0.8-2.9); LYMPHOCYTES % 28.8 % (15.0-51.0); MEAN CORPUSCULAR HGB CONC 28.9 g/dl (32.0-37.0); MEAN CORPUSCULAR VOLUME 76.3 fl (82.0-101.0); MEAN PLATELET VOLUME 9.9 fl (7.4-10.4); MONOCYTE # 0.9 10^3/ul (0.3-0.9); MONOCYTES % 11.5 % (0.0-11.0); NEUTROPHILS % 53.6 % (39.0-77.0); PLATELET COUNT 372 10^3/UL (140-415); RED BLOOD COUNT 3.72 10^6/ul (4.20-5.40); RED CELL DISTRIBUTION WIDTH 19.1 % (11.5-14.5)
[2018-02-09 05:30] LABS: WHITE BLOOD COUNT 7.4 10^3/ul (4.8-10.8)
[2018-02-09 05:44] LABS: ANION GAP 10 (8-16); BLOOD UREA NITROGEN 10 mg/dl (7-20); CALCIUM 8.6 mg/dl (8.4-10.2); CARBON DIOXIDE 31 mmol/L (21-31); CHLORIDE 103 mmol/L (97-110); CREATININE 0.68 mg/dl (0.44-1.00); GLUCOSE 91 mg/dl (70-220); POTASSIUM 3.3 mmol/L (3.5-5.1); SODIUM 141 mmol/L (135-144)
[2018-02-09 06:04] LABS: POSITIVE DIFF @See below
[2018-02-09] MEDS: PANTOPRAZOLE (EC) 40 MG TAB PO (07:00)
[2018-02-09] MEDS: FUROSEMIDE 20 MG TAB PO (09:00)
[2018-02-09] MEDS: morphine LIQ (10 MG/5 ML) CUP PO ×2 (09:23→15:10)
[2018-02-09] MEDS: CELECOXIB 200 MG CAP PO ×2 (09:23→20:05)
[2018-02-09] MEDS: ESCITALOPRAM 10 MG TAB PO (09:24)
[2018-02-09] MEDS: AMLODIPINE 5 MG TAB PO (09:25)
[2018-02-09] MEDS: ISOSORBIDE MONONITRATE(SR)30 MG TAB PO (09:26)
[2018-02-09] MEDS: DOCUSATE SODIUM 100 MG CAP PO ×2 (09:26→20:06)
[2018-02-09] MEDS: BENAZEPRIL 10 MG TAB PO (09:28)
[2018-02-09] MEDS: NICOTINE (14 MG/24 HR) PATCH TRANSDERM (09:30)
[2018-02-09] MEDS: ENOXAPARIN 30 MG/0.3 ML SYG SC (09:32)
[2018-02-09] MEDS: clonAZEPAM 0.5 MG TAB PO ×2 (09:51→20:06)
[2018-02-09] MEDS: POTASSIUM CHLORIDE 20 MEQ POWDER FOR ORAL SOLN PO (16:54)
[2018-02-09] MEDS: SOD FERRIC GLUC COMPLX 125 MG in SOD CHLORIDE 0.9% 100 ML IVPB (17:19)
[2018-02-09] MEDS: BISACODYL (EC) 5 MG TAB PO (17:19)
[2018-02-09] MEDS: ATORVASTATIN 40 MG TAB PO (20:05)
[2018-02-09] MEDS: hydrOXYzine HCL 25 MG TAB PO (20:06)
[2018-02-09] MEDS: ARIPIPRAZOLE 5 MG TAB PO (20:06)
[2018-02-09] MEDS: TIZANIDINE 4 MG TAB PO (20:06)
[2018-02-10] MEDS: PEG/ELECTROLYTES 4L BTL PO (02:06)
[2018-02-10 05:06] LABS: ADD MAN DIFF? NO
[2018-02-10] MEDS: PANTOPRAZOLE (EC) 40 MG TAB PO (05:09)
[2018-02-10 05:11] LABS: ABNORMAL IP MESSAGE 1; BASOPHIL # 0.1 10^3/ul (0.0-0.1); BASOPHILS % 1.2 % (0.0-2.0); EOSINOPHILS # 0.4 10^3/ul (0.0-0.5); EOSINOPHILS % 5.2 % (0.0-7.0); HEMATOCRIT 33.7 % (37.0-47.0); HEMOGLOBIN 9.5 g/dl (12.0-16.0); LYMPHOCYTES # 2.1 10^3/ul (0.8-2.9); LYMPHOCYTES % 27.5 % (15.0-51.0); MEAN CORPUSCULAR HEMOGLOBIN 22.1 pg (29.0-33.0); MEAN CORPUSCULAR HGB CONC 28.2 g/dl (32.0-37.0); MEAN CORPUSCULAR VOLUME 78.4 fl (82.0-101.0); MEAN PLATELET VOLUME 9.6 fl (7.4-10.4); MONOCYTE # 0.7 10^3/ul (0.3-0.9); MONOCYTES % 9.6 % (0.0-11.0); NEUTROPHIL # 4.3 10^3/ul (1.6-7.5); NEUTROPHILS % 56.2 % (39.0-77.0); PLATELET COUNT 428 10^3/UL (140-415); RED CELL DISTRIBUTION WIDTH 19.8 % (11.5-14.5)
[2018-02-10 05:11] LABS: WHITE BLOOD COUNT 7.7 10^3/ul (4.8-10.8)
[2018-02-10 05:17] LABS: POSITIVE DIFF @See below
[2018-02-10 05:39] LABS: ANION GAP 12 (8-16); BLOOD UREA NITROGEN 8 mg/dl (7-20); CARBON DIOXIDE 29 mmol/L (21-31); CHLORIDE 106 mmol/L (97-110); CREATININE 0.77 mg/dl (0.44-1.00); GLUCOSE 88 mg/dl (70-220); INR 1.02; POTASSIUM 3.9 mmol/L (3.5-5.1); PROTIME 13.5 Sec (11.9-14.9); PT RATIO 1.1; SODIUM 143 mmol/L (135-144)
[2018-02-10 05:40] LABS: PARTIAL THROMBOPLASTIN TIME 35.3 Sec (25.0-35.0)
[2018-02-10] MEDS: PROPOFOL 20 ML ×2 (07:33→08:59)
[2018-02-10] MEDS: FENTAnyl 50 MCG/ML VIAL (07:33)
[2018-02-10] MEDS ORDERED: HYDROmorphONE 1 MG/5 ML IV SYRINGE IV ×2 (08:40→09:00)
[2018-02-10] MEDS: HYDROmorphONE 1 MG/5 ML IV SYRINGE IV (08:55)
[2018-02-10] MEDS: CELECOXIB 200 MG CAP PO ×2 (09:00→21:19)
[2018-02-10] MEDS: ENOXAPARIN 30 MG/0.3 ML SYG SC (09:00)
[2018-02-10] MEDS: FUROSEMIDE 20 MG TAB PO (09:00)
[2018-02-10] MEDS: DOCUSATE SODIUM 100 MG CAP PO ×2 (09:00→21:19)
[2018-02-10] MEDS: ESCITALOPRAM 10 MG TAB PO (09:36)
[2018-02-10] MEDS: NICOTINE (14 MG/24 HR) PATCH TRANSDERM (09:37)
[2018-02-10] MEDS: clonAZEPAM 0.5 MG TAB PO ×2 (09:37→21:19)
[2018-02-10] MEDS: ISOSORBIDE MONONITRATE(SR)30 MG TAB PO (09:38)
[2018-02-10] MEDS: AMLODIPINE 5 MG TAB PO (09:39)
[2018-02-10] MEDS: BENAZEPRIL 10 MG TAB PO (09:39)
[2018-02-10] MEDS: morphine LIQ (10 MG/5 ML) CUP PO (15:54)
[2018-02-10] MEDS: SOD FERRIC GLUC COMPLX 125 MG in SOD CHLORIDE 0.9% 100 ML IVPB (17:49)
[2018-02-10] MEDS: LORAZEPAM 2 MG INJ IV (18:35)
[2018-02-10] MEDS: ARIPIPRAZOLE 5 MG TAB PO (21:19)
[2018-02-10] MEDS: ATORVASTATIN 40 MG TAB PO (21:19)
[2018-02-10] MEDS: hydrOXYzine HCL 25 MG TAB PO (21:19)
[2018-02-10] MEDS: NACL 0.9% 3 ML SYG IV (21:20)
[2018-02-11 05:27] LABS: ADD MAN DIFF? NO
[2018-02-11 05:34] LABS: ABNORMAL IP MESSAGE 1; BASOPHIL # 0.1 10^3/ul (0.0-0.1); BASOPHILS % 0.9 % (0.0-2.0); EOSINOPHILS # 0.3 10^3/ul (0.0-0.5); EOSINOPHILS % 4.2 % (0.0-7.0); HEMATOCRIT 29.8 % (37.0-47.0); HEMOGLOBIN 8.5 g/dl (12.0-16.0); LYMPHOCYTES # 1.7 10^3/ul (0.8-2.9); LYMPHOCYTES % 21.4 % (15.0-51.0); MEAN CORPUSCULAR HEMOGLOBIN 22.1 pg (29.0-33.0); MEAN CORPUSCULAR HGB CONC 28.5 g/dl (32.0-37.0); MEAN CORPUSCULAR VOLUME 77.6 fl (82.0-101.0); MEAN PLATELET VOLUME 9.9 fl (7.4-10.4); MONOCYTE # 0.8 10^3/ul (0.3-0.9); MONOCYTES % 9.9 % (0.0-11.0); NEUTROPHIL # 5.1 10^3/ul (1.6-7.5); NEUTROPHILS % 63.2 % (39.0-77.0); PLATELET COUNT 389 10^3/UL (140-415); RED BLOOD COUNT 3.84 10^6/ul (4.20-5.40); RED CELL DISTRIBUTION WIDTH 19.6 % (11.5-14.5)
[2018-02-11 05:34] LABS: WHITE BLOOD COUNT 8.1 10^3/ul (4.8-10.8)
[2018-02-11 05:48] LABS: POSITIVE DIFF @See below
[2018-02-11 06:06] LABS: ANION GAP 13 (8-16); BLOOD UREA NITROGEN 12 mg/dl (7-20); CALCIUM 8.7 mg/dl (8.4-10.2); CARBON DIOXIDE 26 mmol/L (21-31); CHLORIDE 110 mmol/L (97-110); CREATINE KINASE 28 IU/L (23-200); CREATININE 0.81 mg/dl (0.44-1.00); GLUCOSE 95 mg/dl (70-220); POTASSIUM 4.3 mmol/L (3.5-5.1); SODIUM 145 mmol/L (135-144)
[2018-02-11] MEDS: PANTOPRAZOLE (EC) 40 MG TAB PO (06:23)
[2018-02-11] MEDS: DOCUSATE SODIUM 100 MG CAP PO ×3 (08:58→20:21)
[2018-02-11] MEDS: CELECOXIB 200 MG CAP PO ×2 (08:58→20:20)
[2018-02-11] MEDS: clonAZEPAM 0.5 MG TAB PO ×2 (08:58→20:19)
[2018-02-11] MEDS: ISOSORBIDE MONONITRATE(SR)30 MG TAB PO (08:58)
[2018-02-11] MEDS: BENAZEPRIL 10 MG TAB PO (08:59)
[2018-02-11] MEDS: AMLODIPINE 5 MG TAB PO (08:59)
[2018-02-11] MEDS: FUROSEMIDE 20 MG TAB PO (09:00)
[2018-02-11] MEDS: ENOXAPARIN 30 MG/0.3 ML SYG SC (09:01)
[2018-02-11] MEDS: ESCITALOPRAM 10 MG TAB PO (09:36)
[2018-02-11] MEDS: morphine LIQ (10 MG/5 ML) CUP PO ×3 (10:15→21:26)
[2018-02-11] MEDS: NICOTINE (14 MG/24 HR) PATCH TRANSDERM (13:13)
[2018-02-11] MEDS: SOD FERRIC GLUC COMPLX 125 MG in SOD CHLORIDE 0.9% 100 ML IVPB (18:09)
[2018-02-11] MEDS: hydrOXYzine HCL 25 MG TAB PO (20:20)
[2018-02-11] MEDS: ARIPIPRAZOLE 5 MG TAB PO (20:20)
[2018-02-11] MEDS: ATORVASTATIN 40 MG TAB PO (20:20)
[2018-02-12] MEDS: PANTOPRAZOLE (EC) 40 MG TAB PO (05:44)
[2018-02-12] MEDS: clonAZEPAM 0.5 MG TAB PO ×2 (08:15→21:00)
[2018-02-12] MEDS: ISOSORBIDE MONONITRATE(SR)30 MG TAB PO (08:15)
[2018-02-12] MEDS: ESCITALOPRAM 10 MG TAB PO (08:15)
[2018-02-12] MEDS: DOCUSATE SODIUM 100 MG CAP PO ×2 (08:16→21:00)
[2018-02-12] MEDS: BENAZEPRIL 10 MG TAB PO (08:16)
[2018-02-12] MEDS: FUROSEMIDE 20 MG TAB PO (08:16)
[2018-02-12] MEDS: AMLODIPINE 5 MG TAB PO (08:16)
[2018-02-12] MEDS: CELECOXIB 200 MG CAP PO ×2 (08:16→21:00)
[2018-02-12] MEDS: NICOTINE (14 MG/24 HR) PATCH TRANSDERM (08:17)
[2018-02-12] MEDS: ENOXAPARIN 30 MG/0.3 ML SYG SC (08:18)
[2018-02-12] MEDS: morphine LIQ (10 MG/5 ML) CUP PO ×2 (08:19→18:38)
[2018-02-12] MEDS ORDERED: LORAZEPAM 0.5 MG TAB PO (12:00)
[2018-02-12] MEDS: SOD FERRIC GLUC COMPLX 125 MG in SOD CHLORIDE 0.9% 100 ML IVPB (16:43)
[2018-02-12] MEDS: hydrOXYzine HCL 25 MG TAB PO (21:00)
[2018-02-12] MEDS: ARIPIPRAZOLE 5 MG TAB PO (21:00)
[2018-02-12] MEDS: ATORVASTATIN 40 MG TAB PO (21:00)
[2018-02-12] MEDS: LORAZEPAM 1 MG TAB PO (21:03)
[2018-02-13] MEDS: morphine LIQ (10 MG/5 ML) CUP PO ×5 (02:23→22:38)
[2018-02-13] MEDS: PANTOPRAZOLE (EC) 40 MG TAB PO (05:34)
[2018-02-13] MEDS: CELECOXIB 200 MG CAP PO ×2 (08:03→21:08)
[2018-02-13] MEDS: DOCUSATE SODIUM 100 MG CAP PO ×2 (08:03→21:00)
[2018-02-13] MEDS: ESCITALOPRAM 10 MG TAB PO (08:03)
[2018-02-13] MEDS: clonAZEPAM 0.5 MG TAB PO ×2 (08:04→21:13)
[2018-02-13] MEDS: NICOTINE (14 MG/24 HR) PATCH TRANSDERM (08:04)
[2018-02-13] MEDS: FUROSEMIDE 20 MG TAB PO (08:04)
[2018-02-13] MEDS: AMLODIPINE 5 MG TAB PO (08:04)
[2018-02-13] MEDS: ISOSORBIDE MONONITRATE(SR)30 MG TAB PO (08:04)
[2018-02-13] MEDS: BENAZEPRIL 10 MG TAB PO (08:04)
[2018-02-13] MEDS: ENOXAPARIN 30 MG/0.3 ML SYG SC (08:06)
[2018-02-13 09:45] LABS: ADD MAN DIFF? NO
[2018-02-13 09:47] LABS: WHITE BLOOD COUNT 8.9 10^3/ul (4.8-10.8)
[2018-02-13 09:47] LABS: BASOPHIL # 0.1 10^3/ul (0.0-0.1); BASOPHILS % 0.9 % (0.0-2.0); EOSINOPHILS # 0.3 10^3/ul (0.0-0.5); EOSINOPHILS % 3.8 % (0.0-7.0); HEMOGLOBIN 10.8 g/dl (12.0-16.0); LYMPHOCYTES # 2.3 10^3/ul (0.8-2.9); LYMPHOCYTES % 26.1 % (15.0-51.0); MEAN CORPUSCULAR HEMOGLOBIN 22.8 pg (29.0-33.0); MEAN CORPUSCULAR HGB CONC 29.2 g/dl (32.0-37.0); MEAN CORPUSCULAR VOLUME 78.2 fl (82.0-101.0); MEAN PLATELET VOLUME 9.6 fl (7.4-10.4); MONOCYTE # 0.7 10^3/ul (0.3-0.9); MONOCYTES % 8.1 % (0.0-11.0); NEUTROPHIL # 5.4 10^3/ul (1.6-7.5); NEUTROPHILS % 60.9 % (39.0-77.0); PLATELET COUNT 417 10^3/UL (140-415); RED BLOOD COUNT 4.73 10^6/ul (4.20-5.40); RED CELL DISTRIBUTION WIDTH 20.7 % (11.5-14.5)
[2018-02-13] MEDS: ATORVASTATIN 40 MG TAB PO ×2 (21:00→21:08)
[2018-02-13] MEDS: ARIPIPRAZOLE 5 MG TAB PO (21:08)
[2018-02-13] MEDS: hydrOXYzine HCL 25 MG TAB PO (21:09)
[2018-02-14] MEDS: PANTOPRAZOLE (EC) 40 MG TAB PO (06:00)
[2018-02-14 06:05] LABS: ADD MAN DIFF? NO
[2018-02-14 06:07] LABS: WHITE BLOOD COUNT 8.2 10^3/ul (4.8-10.8)
[2018-02-14 06:07] LABS: ABNORMAL IP MESSAGE 1; BASOPHIL # 0.1 10^3/ul (0.0-0.1); BASOPHILS % 0.7 % (0.0-2.0); EOSINOPHILS # 0.4 10^3/ul (0.0-0.5); EOSINOPHILS % 4.8 % (0.0-7.0); HEMATOCRIT 32.1 % (37.0-47.0); HEMOGLOBIN 9.2 g/dl (12.0-16.0); IMMATURE GRANS #M 0.03 10^3/ul; IMMATURE GRANS % (M) 0.4 %; LYMPHOCYTES # 2.8 10^3/ul (0.8-2.9); LYMPHOCYTES % 34.8 % (15.0-51.0); MEAN CORPUSCULAR HEMOGLOBIN 22.8 pg (29.0-33.0); MEAN CORPUSCULAR HGB CONC 28.7 g/dl (32.0-37.0); MEAN CORPUSCULAR VOLUME 79.7 fl (82.0-101.0); MEAN PLATELET VOLUME 9.6 fl (7.4-10.4); MONOCYTE # 0.8 10^3/ul (0.3-0.9); MONOCYTES % 10.2 % (0.0-11.0); NEUTROPHILS % 49.1 % (39.0-77.0); PLATELET COUNT 349 10^3/UL (140-415); RED BLOOD COUNT 4.03 10^6/ul (4.20-5.40); RED CELL DISTRIBUTION WIDTH 20.6 % (11.5-14.5)
[2018-02-14 06:12] LABS: POSITIVE DIFF @See below
[2018-02-14 06:48] LABS: ANION GAP 11 (8-16); BLOOD UREA NITROGEN 17 mg/dl (7-20); CALCIUM 8.5 mg/dl (8.4-10.2); CARBON DIOXIDE 28 mmol/L (21-31); CHLORIDE 106 mmol/L (97-110); CREATININE 0.84 mg/dl (0.44-1.00); GLUCOSE 87 mg/dl (70-220); SODIUM 141 mmol/L (135-144)
[2018-02-14] MEDS: morphine LIQ (10 MG/5 ML) CUP PO ×3 (08:24→18:04)
[2018-02-14] MEDS: BENAZEPRIL 10 MG TAB PO (09:34)
[2018-02-14] MEDS: LORAZEPAM 1 MG TAB PO (09:34)
[2018-02-14] MEDS: AMLODIPINE 5 MG TAB PO (09:34)
[2018-02-14] MEDS: CELECOXIB 200 MG CAP PO ×2 (09:35→21:10)
[2018-02-14] MEDS: ESCITALOPRAM 10 MG TAB PO (09:35)
[2018-02-14] MEDS: ISOSORBIDE MONONITRATE(SR)30 MG TAB PO (09:35)
[2018-02-14] MEDS: DOCUSATE SODIUM 100 MG CAP PO ×2 (09:36→21:09)
[2018-02-14] MEDS: FUROSEMIDE 20 MG TAB PO (09:36)
[2018-02-14] MEDS: NICOTINE (14 MG/24 HR) PATCH TRANSDERM (09:37)
[2018-02-14] MEDS: ENOXAPARIN 30 MG/0.3 ML SYG SC (09:40)
[2018-02-14] MEDS: clonAZEPAM 0.5 MG TAB PO ×2 (09:46→21:09)
[2018-02-14] MEDS: ATORVASTATIN 40 MG TAB PO (21:00)
[2018-02-14] MEDS: ARIPIPRAZOLE 5 MG TAB PO (21:09)
[2018-02-14] MEDS: hydrOXYzine HCL 25 MG TAB PO (21:09)
[2018-02-15] MEDS: morphine LIQ (10 MG/5 ML) CUP PO ×2 (02:19→08:43)
[2018-02-15] MEDS: PANTOPRAZOLE (EC) 40 MG TAB PO (06:00)
[2018-02-15] MEDS: ESCITALOPRAM 10 MG TAB PO (08:15)
[2018-02-15] MEDS: BENAZEPRIL 10 MG TAB PO (08:15)
[2018-02-15] MEDS: AMLODIPINE 5 MG TAB PO (08:16)
[2018-02-15] MEDS: FUROSEMIDE 20 MG TAB PO (08:16)
[2018-02-15] MEDS: DOCUSATE SODIUM 100 MG CAP PO (08:16)
[2018-02-15] MEDS: CELECOXIB 200 MG CAP PO (08:16)
[2018-02-15] MEDS: ISOSORBIDE MONONITRATE(SR)30 MG TAB PO (08:16)
[2018-02-15] MEDS: clonAZEPAM 0.5 MG TAB PO (08:16)
[2018-02-15] MEDS: NICOTINE (14 MG/24 HR) PATCH TRANSDERM (08:16)
[2018-02-15] MEDS: ENOXAPARIN 30 MG/0.3 ML SYG SC (08:20)
[2018-02-15 14:06] LABS: ALBUMIN 3.8 g/dL (3.8-4.8); ALPHA-1-GLOBULINS 0.5 g/dL (0.2-0.3); ALPHA-2-GLOBULINS 0.8 g/dL (0.5-0.9); BETA 2 GLOBULINS 0.5 g/dL (0.2-0.5); BETA GLOBULINS 0.6 g/dL (0.4-0.6); GAMMA GLOBULINS 1.1 g/dL (0.8-1.7); HAPTOGLOBIN 166 mg/dL (43-212); PROTEIN, TOTAL 7.3 g/dL (6.1-8.1)
[2018-02-15 14:07] LABS: ERYTHROPOIETIN 82.2 mIU/mL (2.6-18.5)
== END 2018-02-15 12:50 | disposition left against medical advice (07) | DRG 563 ==
LOC: E/R 08:29 → MS1 02-04 12:21 → TEL 11:45
PROC: 0DJD8ZZ Inspection of Lower Intestinal Tract, Via Natural or Artificial Opening Endoscopic (ICD-10-PCS; principal; 2018-02-10 07:00)
PROC: 0DD68ZX Extraction of Stomach, Via Natural or Artificial Opening Endoscopic, Diagnostic (ICD-10-PCS; 2018-02-10 07:00)
DX: S52.572A Other intraarticular fracture of lower end of left radius, initial encounter for closed fracture (principal); M62.82 Rhabdomyolysis; F11.121 Opioid abuse with intoxication delirium; F33.9 Major depressive disorder, recurrent, unspecified; D50.9 Iron deficiency anemia, unspecified; Q27.33 Arteriovenous malformation of digestive system vessel; T40.601A Poisoning by unspecified narcotics, accidental (unintentional), initial encounter; R55 Syncope and collapse; Y92.009 Unspecified place in unspecified non-institutional (private) residence as the place of occurrence of the external cause; F41.9 Anxiety disorder, unspecified; D64.9 Anemia, unspecified; K29.70 Gastritis, unspecified, without bleeding; K44.9 Diaphragmatic hernia without obstruction or gangrene; K57.90 Diverticulosis of intestine, part unspecified, without perforation or abscess without bleeding; W18.30XA Fall on same level, unspecified, initial encounter; R27.8 Other lack of coordination; J44.9 Chronic obstructive pulmonary disease, unspecified; I25.10 Atherosclerotic heart disease of native coronary artery without angina pectoris; E78.5 Hyperlipidemia, unspecified; I10 Essential (primary) hypertension; K64.4 Residual hemorrhoidal skin tags
CPT/HCPCS: 70450; 72125; 72170; 73030; 73110-LT; 80048; 80053; 80307; 81001; 82550; 82553; 82607; 82668; 82728; 82746; 83010; 83036; 83540; 83605; 83615; 84155; 84165; 84443; 84484; 85025; 85045; 85610; 85730; 87040; 88305; 88312; 93005; 96360; 97116; 97162; 97530; 99291-25

== ENCOUNTER → 2018-07-15 | Outpatient (CLI) | payer MEDICARE, OTHER ==
[~2018-07-15] MED LIST: BARIUM SULF 2% 450 ML BTL (BERRY SMOOTHIE) PO
[2018-07-15] MEDS: SOD CHLORIDE 0.9% 100 ML (13:39)
[2018-07-15] MEDS: IOHEXOL 300MG/ML 150 ML BTL (13:40)
== END | disposition home or self-care (01) ==
LOC: C/S 11:15
DX: R10.9 Unspecified abdominal pain (principal); R63.0 Anorexia
CPT/HCPCS: 71260; 74177

== ENCOUNTER 2019-01-03 08:05 | Inpatient (IN) | payer MEDICARE, OTHER ==
[2019-01-03 09:33] LABS: HEMOGLOBIN 12.5 g/dl (12.0-16.0); MEAN CORPUSCULAR HEMOGLOBIN 24.3 pg (29.0-33.0); MEAN CORPUSCULAR HGB CONC 29.1 g/dl (32.0-37.0); MEAN CORPUSCULAR VOLUME 83.5 fl (82.0-101.0); MEAN PLATELET VOLUME 10.1 fl (7.4-10.4); PLATELET COUNT 466 10^3/UL (140-415); RED BLOOD COUNT 5.15 10^6/ul (4.20-5.40)
[2019-01-03 09:33] LABS: WHITE BLOOD COUNT 15.9 10^3/ul (4.8-10.8)
[2019-01-03 09:38] LABS: ADD MAN DIFF? YES
[2019-01-03 09:45] LABS: ALBUMIN/GLOBULIN RATIO 1.08; ALKALINE PHOSPHATASE 96 IU/L (42-121); ANION GAP 9 (5-13); ASPARTATE AMINO TRANSFERASE 32 IU/L (15-46); BILIRUBIN,INDIRECT 0.5 mg/dl (0-1.1); BILIRUBIN,TOTAL 0.5 mg/dl (0.2-1.3); BLOOD UREA NITROGEN 20 mg/dl (7-20); CALCIUM 8.9 mg/dl (8.4-10.2); CARBON DIOXIDE 35 mmol/L (21-31); CHLORIDE 102 mmol/L (97-110); CREATINE KINASE 585 IU/L (23-200); GLUCOSE 114 mg/dl (70-220); POTASSIUM 4.4 mmol/L (3.5-5.1); SODIUM 146 mmol/L (135-144); TOTAL PROTEIN 7.7 g/dl (6.1-8.1)
[2019-01-03 10:02] LABS: T3 UPTAKE 33.3 % (23.5-40.5)
[2019-01-03 10:03] LABS: T4 (THYROXINE) 8.1 ug/dl (5.5-11.0)
[2019-01-03 10:05] LABS: ALANINE AMINOTRANSFERASE < 6 IU/L (13-69)
[2019-01-03] MEDS: AZTREONAM 1 GM/NS (PMX) 50 ML IVPB ×2 (10:05→10:48)
[2019-01-03] MEDS: SOD CHLORIDE 0.9% 1,000 ML IV ×4 (10:06→19:05)
[2019-01-03] MEDS: CLINDAMYCIN 900 MG/D5W (PMX) 50 ML IVPB (10:53)
[2019-01-03 10:55] LABS: ANISOCYTOSIS 2+ (0-0); BAND NEUTROPHILS #M 0.4 10^3/ul (0.0-0.6); BAND NEUTROPHILS % (M) 3 % (0-4); BASOPHIL #M 0.3 10^3/ul (0.0-0.0); BASOPHILS % (M) 2 % (0-2); HYPOCHROMASIA 1+ (0-0); LYMPHOCYTES #M 0.9 10^3/ul (0.8-2.9); LYMPHOCYTES % (M) 6 % (15-51); MICROCYTOSIS 1+ (0-0); MONOCYTE #M 1.1 10^3/ul (0.3-0.9); MONOCYTES % (M) 7 % (0-11); OVALOCYTES 1+ (0-0); PLATELET ESTIMATE INCREASED; POIKILOCYTOSIS 2+ (0-0); POLYCHROMASIA 3+ (0-0); SEG NEUT #M 13.1 10^3/ul (1.6-7.5); SEGMENTED NEUTROPHILS (M) % 82 % (39-77); SMUDGE%M 8 % (0-0)
[2019-01-03] MEDS ORDERED: ACETAMINOPHEN 325 MG TAB PO (11:00)
[2019-01-03] MEDS ORDERED: ONDANSETRON 4 MG INJ IV ×2 (11:00→11:30)
[2019-01-03] MEDS: LACTATED RINGER'S 1,000 ML IV (11:23)
[2019-01-03] MEDS: ASPIRIN 81 MG TAB PO (11:27)
[2019-01-03] MEDS ORDERED: NACL 0.9% 3 ML SYG IV (11:30)
[2019-01-03] MEDS: VANCOMYCIN 1 GM (PMX) 250 ML IVPB (12:12)
[2019-01-03 14:49] LABS: ADD UMIC YES; UR ASCORBIC ACID NEGATIVE (NEGATIVE); UR BACTERIA FEW /HPF (NONE SEEN); UR BILIRUBIN (Dip) NEGATIVE (NEGATIVE); UR BLOOD (Dip) NEGATIVE (NEGATIVE); UR CLARITY CLOUDY (CLEAR); UR COLOR AMBER (YELLOW); UR GLUCOSE (Dip) NEGATIVE (NEGATIVE); UR KETONES (Dip) NEGATIVE (NEGATIVE); UR LEUKOCYTE ESTERASE (Dip) 2+ Leu/ul (NEGATIVE); UR MUCUS MANY /HPF (NONE SEEN); UR NITRITE (Dip) NEGATIVE (NEGATIVE); UR RBC 16 /HPF (0-5); UR SPECIFIC GRAVITY (Dip) 1.018 (1.003-1.030); UR SQUAMOUS EPITHELIAL CELL MANY /HPF (FEW); UR TOTAL PROTEIN (Dip) NEGATIVE (NEGATIVE); UR TRANSITIONAL EPI CELL FEW /HPF (NONE SEEN); UR UROBILINOGEN (Dip) NEGATIVE (NEGATIVE); UR WBC 42 /HPF (0-5)
[2019-01-03] MEDS: AZTREONAM 2 GM in DEXTROSE 5% 100 ML IVPB ×2 (16:00→21:59)
[2019-01-03 16:19] LABS: LACTIC ACID 1.9 mmol/L (0.5-2.0)
[2019-01-03] MEDS: PETROLATUM 5 GM OINT TOP ×2 (16:28→21:58)
[2019-01-03 17:02] LABS: CREATINE KINASE 589 IU/L (23-200)
[2019-01-03 17:15] LABS: CK INDEX 0.8; CK-MB 4.46 ng/ml (0.0-2.4)
[2019-01-03 17:24] LABS: TROPONIN-I 0.125 ng/ml (0.000-0.120)
[2019-01-03 21:05] LABS: CREATINE KINASE 533 IU/L (23-200)
[2019-01-03] MEDS: FAMOTIDINE 20 MG INJ IV (21:12)
[2019-01-03 21:13] LABS: PREALBUMIN 8.1 mg/dl (17.6-36.0)
[2019-01-03 21:18] LABS: CK INDEX 0.7; CK-MB 3.86 ng/ml (0.0-2.4); TROPONIN-I 0.129 ng/ml (0.000-0.120)
[2019-01-04] MEDS: SOD CHLORIDE 0.9% 1,000 ML IV ×4 (03:05→14:47)
[2019-01-04 05:51] LABS: ADD MAN DIFF? NO
[2019-01-04 06:05] LABS: BASOPHIL # 0.1 10^3/ul (0.0-0.1); BASOPHILS % 0.9 % (0.0-2.0); EOSINOPHILS # 0.3 10^3/ul (0.0-0.5); EOSINOPHILS % 2.8 % (0.0-7.0); HEMATOCRIT 35.1 % (37.0-47.0); HEMOGLOBIN 10.2 g/dl (12.0-16.0); LYMPHOCYTES # 2.2 10^3/ul (0.8-2.9); LYMPHOCYTES % 22.2 % (15.0-51.0); MEAN CORPUSCULAR HEMOGLOBIN 24.2 pg (29.0-33.0); MEAN CORPUSCULAR HGB CONC 29.1 g/dl (32.0-37.0); MEAN CORPUSCULAR VOLUME 83.2 fl (82.0-101.0); MEAN PLATELET VOLUME 10.1 fl (7.4-10.4); MONOCYTE # 0.9 10^3/ul (0.3-0.9); MONOCYTES % 9.1 % (0.0-11.0); NEUTROPHIL # 6.4 10^3/ul (1.6-7.5); NEUTROPHILS % 64.7 % (39.0-77.0); PLATELET COUNT 361 10^3/UL (140-415); RED BLOOD COUNT 4.22 10^6/ul (4.20-5.40); RED CELL DISTRIBUTION WIDTH 18.9 % (11.5-14.5)
[2019-01-04 06:05] LABS: WHITE BLOOD COUNT 9.9 10^3/ul (4.8-10.8)
[2019-01-04 06:49] LABS: ALANINE AMINOTRANSFERASE 15 IU/L (13-69); ALBUMIN 2.8 g/dl (3.3-4.9); ALBUMIN/GLOBULIN RATIO 0.93; ALKALINE PHOSPHATASE 66 IU/L (42-121); ANION GAP 4 (5-13); ASPARTATE AMINO TRANSFERASE 27 IU/L (15-46); BILIRUBIN,INDIRECT 0.3 mg/dl (0-1.1); BILIRUBIN,TOTAL 0.3 mg/dl (0.2-1.3); BLOOD UREA NITROGEN 15 mg/dl (7-20); CALCIUM 7.8 mg/dl (8.4-10.2); CARBON DIOXIDE 29 mmol/L (21-31); CHLORIDE 109 mmol/L (97-110); CREATININE 0.44 mg/dl (0.44-1.00); GLUCOSE 81 mg/dl (70-220); POTASSIUM 3.8 mmol/L (3.5-5.1); SODIUM 142 mmol/L (135-144); TOTAL PROTEIN 5.8 g/dl (6.1-8.1)
[2019-01-04] MEDS: AZTREONAM 2 GM in SOD CHLORIDE 0.9% 100 ML IVPB ×3 (07:41→22:00)
[2019-01-04] MEDS: ASPIRIN 81 MG TAB PO (08:18)
[2019-01-04] MEDS: FAMOTIDINE 20 MG INJ IV (08:19)
[2019-01-04] MEDS: PETROLATUM 5 GM OINT TOP ×2 (08:19→21:00)
[2019-01-04] MEDS: ENOXAPARIN 30 MG/0.3 ML SYG SC (08:25)
[2019-01-04] MEDS: clonAZEPAM 0.5 MG TAB PO (20:11)
[2019-01-04] MEDS: ATORVASTATIN 40 MG TAB PO (21:00)
[2019-01-04] MEDS: BALSAM PERU/CASTOR OIL 60 GM TUBE TOP (21:00)
[2019-01-04] MEDS: FAMOTIDINE 20 MG TAB PO (21:00)
[2019-01-04] MEDS: CEFUROXIME 250 MG TAB PO (23:15)
[2019-01-05] MEDS: SOD CHLORIDE 0.9% 1,000 ML IV ×3 (03:05→19:05)
[2019-01-05] MEDS: AZTREONAM 2 GM in SOD CHLORIDE 0.9% 100 ML IVPB ×2 (06:00→14:00)
[2019-01-05] MEDS: BALSAM PERU/CASTOR OIL 60 GM TUBE TOP ×2 (08:55→20:27)
[2019-01-05] MEDS: PETROLATUM 5 GM OINT TOP ×2 (08:55→20:26)
[2019-01-05] MEDS: ESCITALOPRAM 10 MG TAB PO (08:58)
[2019-01-05] MEDS: AZITHROMYCIN 250 MG TAB PO (08:58)
[2019-01-05] MEDS: ATENOLOL 25 MG TAB PO (08:59)
[2019-01-05] MEDS: clonAZEPAM 0.5 MG TAB PO ×2 (08:59→20:24)
[2019-01-05] MEDS: BENAZEPRIL 10 MG TAB PO (08:59)
[2019-01-05] MEDS ORDERED: AMLODIPINE 5 MG TAB PO (09:00)
[2019-01-05] MEDS: PANTOPRAZOLE (EC) 40 MG TAB PO (09:00)
[2019-01-05] MEDS: ENOXAPARIN 30 MG/0.3 ML SYG SC (09:00)
[2019-01-05] MEDS: ASPIRIN (EC) 81 MG TAB PO (09:00)
[2019-01-05] MEDS: FAMOTIDINE 20 MG TAB PO ×2 (09:00→20:24)
[2019-01-05] MEDS: CEFUROXIME 250 MG TAB PO (09:02)
[2019-01-05 11:02] LABS: ADD MAN DIFF? NO
[2019-01-05 11:05] LABS: WHITE BLOOD COUNT 10.2 10^3/ul (4.8-10.8)
[2019-01-05 11:05] LABS: BASOPHIL # 0.1 10^3/ul (0.0-0.1); BASOPHILS % 0.6 % (0.0-2.0); EOSINOPHILS # 0.2 10^3/ul (0.0-0.5); EOSINOPHILS % 2.2 % (0.0-7.0); HEMATOCRIT 35.1 % (37.0-47.0); HEMOGLOBIN 10.5 g/dl (12.0-16.0); LYMPHOCYTES # 1.4 10^3/ul (0.8-2.9); LYMPHOCYTES % 13.4 % (15.0-51.0); MEAN CORPUSCULAR HEMOGLOBIN 24.4 pg (29.0-33.0); MEAN CORPUSCULAR HGB CONC 29.9 g/dl (32.0-37.0); MEAN CORPUSCULAR VOLUME 81.4 fl (82.0-101.0); MEAN PLATELET VOLUME 9.5 fl (7.4-10.4); MONOCYTE # 0.7 10^3/ul (0.3-0.9); MONOCYTES % 7.2 % (0.0-11.0); NEUTROPHIL # 7.8 10^3/ul (1.6-7.5); NEUTROPHILS % 76.2 % (39.0-77.0); PLATELET COUNT 416 10^3/UL (140-415); RED BLOOD COUNT 4.31 10^6/ul (4.20-5.40); RED CELL DISTRIBUTION WIDTH 18.6 % (11.5-14.5)
[2019-01-05 11:36] LABS: ANION GAP 8 (5-13); BLOOD UREA NITROGEN 8 mg/dl (7-20); CALCIUM 8.3 mg/dl (8.4-10.2); CARBON DIOXIDE 30 mmol/L (21-31); CHLORIDE 104 mmol/L (97-110); CREATININE 0.49 mg/dl (0.44-1.00); GLUCOSE 86 mg/dl (70-220); MAGNESIUM 1.6 mg/dl (1.7-2.5); POTASSIUM 3.6 mmol/L (3.5-5.1); SODIUM 142 mmol/L (135-144)
[2019-01-05] MEDS: MAGNESIUM SULFATE 2 GM/50 ML 50 ML IVPB (13:00)
[2019-01-05] MEDS: LEVOFLOXACIN 500 MG TAB PO (15:32)
[2019-01-05] MEDS: LORAZEPAM 0.5 MG TAB PO (18:38)
[2019-01-05] MEDS: ATORVASTATIN 40 MG TAB PO (20:24)
[2019-01-05] MEDS: MAGNESIUM OXIDE 400 MG TAB PO (21:00)
[2019-01-06] MEDS: LORAZEPAM 0.5 MG TAB PO ×2 (01:40→14:58)
[2019-01-06] MEDS: morphine 2 MG INJ IV ×2 (01:58→21:31)
[2019-01-06] MEDS: SOD CHLORIDE 0.9% 1,000 ML IV (03:05)
[2019-01-06] MEDS: PANTOPRAZOLE (EC) 40 MG TAB PO (06:10)
[2019-01-06] MEDS: LEVOFLOXACIN 250 MG TAB PO (06:10)
[2019-01-06] MEDS: PETROLATUM 5 GM OINT TOP ×2 (09:13→21:20)
[2019-01-06] MEDS: clonAZEPAM 0.5 MG TAB PO ×2 (09:13→21:20)
[2019-01-06] MEDS: BENAZEPRIL 10 MG TAB PO (09:14)
[2019-01-06] MEDS: ATENOLOL 25 MG TAB PO (09:14)
[2019-01-06] MEDS: FAMOTIDINE 20 MG TAB PO ×2 (09:14→21:20)
[2019-01-06] MEDS: ASPIRIN (EC) 81 MG TAB PO (09:14)
[2019-01-06] MEDS: ESCITALOPRAM 10 MG TAB PO (09:14)
[2019-01-06] MEDS: MAGNESIUM OXIDE 400 MG TAB PO ×2 (09:15→21:20)
[2019-01-06] MEDS: ENOXAPARIN 30 MG/0.3 ML SYG SC (09:28)
[2019-01-06] MEDS: BALSAM PERU/CASTOR OIL 60 GM TUBE TOP ×2 (09:29→21:23)
[2019-01-06] MEDS: ATORVASTATIN 40 MG TAB PO (21:20)
[2019-01-07] MEDS: PANTOPRAZOLE (EC) 40 MG TAB PO (05:45)
[2019-01-07] MEDS: LEVOFLOXACIN 250 MG TAB PO (05:45)
[2019-01-07 05:46] LABS: ADD MAN DIFF? NO
[2019-01-07 05:55] LABS: BASOPHIL # 0.1 10^3/ul (0.0-0.1); BASOPHILS % 0.6 % (0.0-2.0); EOSINOPHILS # 0.4 10^3/ul (0.0-0.5); EOSINOPHILS % 4.1 % (0.0-7.0); HEMATOCRIT 35.5 % (37.0-47.0); HEMOGLOBIN 10.6 g/dl (12.0-16.0); LYMPHOCYTES # 2.1 10^3/ul (0.8-2.9); LYMPHOCYTES % 23.7 % (15.0-51.0); MEAN CORPUSCULAR HEMOGLOBIN 24.4 pg (29.0-33.0); MEAN CORPUSCULAR HGB CONC 29.9 g/dl (32.0-37.0); MEAN CORPUSCULAR VOLUME 81.6 fl (82.0-101.0); MEAN PLATELET VOLUME 9.7 fl (7.4-10.4); MONOCYTE # 0.8 10^3/ul (0.3-0.9); MONOCYTES % 9.4 % (0.0-11.0); NEUTROPHIL # 5.5 10^3/ul (1.6-7.5); NEUTROPHILS % 61.6 % (39.0-77.0); PLATELET COUNT 437 10^3/UL (140-415); RED BLOOD COUNT 4.35 10^6/ul (4.20-5.40); RED CELL DISTRIBUTION WIDTH 18.9 % (11.5-14.5)
[2019-01-07 06:35] LABS: ANION GAP 6 (5-13); BLOOD UREA NITROGEN 10 mg/dl (7-20); CALCIUM 8.1 mg/dl (8.4-10.2); CARBON DIOXIDE 32 mmol/L (21-31); CHLORIDE 105 mmol/L (97-110); CREATININE 0.59 mg/dl (0.44-1.00); GLUCOSE 87 mg/dl (70-220); MAGNESIUM 1.9 mg/dl (1.7-2.5); POTASSIUM 3.5 mmol/L (3.5-5.1); SODIUM 143 mmol/L (135-144)
[2019-01-07] MEDS: ATENOLOL 25 MG TAB PO (09:16)
[2019-01-07] MEDS: ASPIRIN (EC) 81 MG TAB PO (09:16)
[2019-01-07] MEDS: PETROLATUM 5 GM OINT TOP ×2 (09:16→20:08)
[2019-01-07] MEDS: FAMOTIDINE 20 MG TAB PO ×2 (09:16→20:08)
[2019-01-07] MEDS: MAGNESIUM OXIDE 400 MG TAB PO ×2 (09:17→20:08)
[2019-01-07] MEDS: BENAZEPRIL 10 MG TAB PO (09:17)
[2019-01-07] MEDS: clonAZEPAM 0.5 MG TAB PO ×2 (09:17→20:08)
[2019-01-07] MEDS: ESCITALOPRAM 10 MG TAB PO (09:17)
[2019-01-07] MEDS: BALSAM PERU/CASTOR OIL 60 GM TUBE TOP ×2 (09:18→20:09)
[2019-01-07] MEDS: ENOXAPARIN 30 MG/0.3 ML SYG SC (09:25)
[2019-01-07] MEDS: LORAZEPAM 0.5 MG TAB PO (13:37)
[2019-01-07] MEDS: morphine 2 MG INJ IV (18:29)
[2019-01-07] MEDS: ATORVASTATIN 40 MG TAB PO (20:08)
[2019-01-08] MEDS: PANTOPRAZOLE (EC) 40 MG TAB PO (06:28)
[2019-01-08] MEDS: morphine 2 MG INJ IV ×2 (06:28→18:16)
[2019-01-08] MEDS: LEVOFLOXACIN 250 MG TAB PO (06:28)
[2019-01-08] MEDS: MAGNESIUM OXIDE 400 MG TAB PO ×2 (09:07→20:41)
[2019-01-08] MEDS: ESCITALOPRAM 10 MG TAB PO (09:07)
[2019-01-08] MEDS: FAMOTIDINE 20 MG TAB PO ×2 (09:07→20:41)
[2019-01-08] MEDS: clonAZEPAM 0.5 MG TAB PO ×2 (09:07→20:42)
[2019-01-08] MEDS: ASPIRIN (EC) 81 MG TAB PO (09:08)
[2019-01-08] MEDS: BALSAM PERU/CASTOR OIL 60 GM TUBE TOP ×2 (09:08→20:44)
[2019-01-08] MEDS: ATENOLOL 25 MG TAB PO (09:08)
[2019-01-08] MEDS: PETROLATUM 5 GM OINT TOP ×2 (09:08→20:41)
[2019-01-08] MEDS: ENOXAPARIN 30 MG/0.3 ML SYG SC (09:09)
[2019-01-08] MEDS: BENAZEPRIL 10 MG TAB PO (10:46)
[2019-01-08] MEDS: LORAZEPAM 2 MG INJ IV (10:47)
[2019-01-08] MEDS: ATORVASTATIN 40 MG TAB PO (20:41)
[2019-01-09 05:18] LABS: ADD MAN DIFF? NO
[2019-01-09 05:25] LABS: WHITE BLOOD COUNT 9.8 10^3/ul (4.8-10.8)
[2019-01-09 05:25] LABS: BASOPHIL # 0.1 10^3/ul (0.0-0.1); BASOPHILS % 0.5 % (0.0-2.0); EOSINOPHILS # 0.5 10^3/ul (0.0-0.5); EOSINOPHILS % 5.2 % (0.0-7.0); HEMATOCRIT 34.3 % (37.0-47.0); HEMOGLOBIN 10.3 g/dl (12.0-16.0); LYMPHOCYTES # 1.8 10^3/ul (0.8-2.9); LYMPHOCYTES % 18.4 % (15.0-51.0); MEAN CORPUSCULAR HEMOGLOBIN 24.6 pg (29.0-33.0); MEAN CORPUSCULAR VOLUME 82.1 fl (82.0-101.0); MEAN PLATELET VOLUME 9.8 fl (7.4-10.4); MONOCYTE # 0.9 10^3/ul (0.3-0.9); MONOCYTES % 8.8 % (0.0-11.0); NEUTROPHIL # 6.5 10^3/ul (1.6-7.5); NEUTROPHILS % 66.7 % (39.0-77.0); PLATELET COUNT 407 10^3/UL (140-415); RED BLOOD COUNT 4.18 10^6/ul (4.20-5.40); RED CELL DISTRIBUTION WIDTH 19.1 % (11.5-14.5)
[2019-01-09 05:58] LABS: ANION GAP 4 (5-13); BLOOD UREA NITROGEN 16 mg/dl (7-20); CALCIUM 7.8 mg/dl (8.4-10.2); CARBON DIOXIDE 32 mmol/L (21-31); CHLORIDE 106 mmol/L (97-110); CREATININE 0.65 mg/dl (0.44-1.00); GLUCOSE 97 mg/dl (70-220); POTASSIUM 3.8 mmol/L (3.5-5.1); SODIUM 142 mmol/L (135-144)
[2019-01-09] MEDS: PANTOPRAZOLE (EC) 40 MG TAB PO (06:18)
[2019-01-09] MEDS: LEVOFLOXACIN 250 MG TAB PO (06:19)
[2019-01-09] MEDS: morphine 2 MG INJ IV (07:45)
[2019-01-09] MEDS: ESCITALOPRAM 10 MG TAB PO (08:08)
[2019-01-09] MEDS: PETROLATUM 5 GM OINT TOP ×2 (08:08→20:06)
[2019-01-09] MEDS: clonAZEPAM 0.5 MG TAB PO ×2 (08:08→20:06)
[2019-01-09] MEDS: BALSAM PERU/CASTOR OIL 60 GM TUBE TOP ×2 (08:08→20:06)
[2019-01-09] MEDS: FAMOTIDINE 20 MG TAB PO ×2 (08:08→20:06)
[2019-01-09] MEDS: MAGNESIUM OXIDE 400 MG TAB PO ×2 (08:08→20:06)
[2019-01-09] MEDS: ASPIRIN (EC) 81 MG TAB PO (08:08)
[2019-01-09] MEDS: BENAZEPRIL 10 MG TAB PO (08:10)
[2019-01-09] MEDS: ATENOLOL 25 MG TAB PO (08:10)
[2019-01-09] MEDS: ENOXAPARIN 30 MG/0.3 ML SYG SC (08:11)
[2019-01-09] MEDS: morphine 4 MG/ML VIAL IV (11:36)
[2019-01-09] MEDS: ATORVASTATIN 40 MG TAB PO (20:06)
[2019-01-09] MEDS: LORAZEPAM 0.5 MG TAB PO (21:19)
[2019-01-10] MEDS: morphine 4 MG/ML VIAL IV (02:32)
[2019-01-10] MEDS: LEVOFLOXACIN 250 MG TAB PO (06:21)
[2019-01-10] MEDS: PANTOPRAZOLE (EC) 40 MG TAB PO (06:21)
[2019-01-10] MEDS: clonAZEPAM 0.5 MG TAB PO ×2 (08:43→20:29)
[2019-01-10] MEDS: MAGNESIUM OXIDE 400 MG TAB PO ×2 (08:43→20:29)
[2019-01-10] MEDS: ESCITALOPRAM 10 MG TAB PO (08:43)
[2019-01-10] MEDS: FAMOTIDINE 20 MG TAB PO ×2 (08:44→20:29)
[2019-01-10] MEDS: PETROLATUM 5 GM OINT TOP ×2 (08:44→21:32)
[2019-01-10] MEDS: ATENOLOL 25 MG TAB PO (08:44)
[2019-01-10] MEDS: ASPIRIN (EC) 81 MG TAB PO (08:44)
[2019-01-10] MEDS: BENAZEPRIL 10 MG TAB PO (08:44)
[2019-01-10] MEDS: ENOXAPARIN 30 MG/0.3 ML SYG SC (08:47)
[2019-01-10] MEDS: BALSAM PERU/CASTOR OIL 60 GM TUBE TOP ×2 (08:47→20:30)
[2019-01-10] MEDS: ACETAMINOPHEN 325 MG TAB PO ×2 (09:16→23:02)
[2019-01-10] MEDS: LORAZEPAM 0.5 MG TAB PO ×2 (16:06→22:20)
[2019-01-10] MEDS: NICOTINE (21 MG/24 HR) PATCH TRANSDERM (17:17)
[2019-01-10] MEDS: LORAZEPAM 2 MG INJ IV (19:30)
[2019-01-10] MEDS: ATORVASTATIN 40 MG TAB PO (20:29)
[2019-01-11] MEDS: PANTOPRAZOLE (EC) 40 MG TAB PO (05:57)
[2019-01-11] MEDS: clonAZEPAM 0.5 MG TAB PO ×2 (09:45→21:34)
[2019-01-11] MEDS: NICOTINE (21 MG/24 HR) PATCH TRANSDERM (09:45)
[2019-01-11] MEDS: PETROLATUM 5 GM OINT TOP ×2 (09:45→21:34)
[2019-01-11] MEDS: ESCITALOPRAM 10 MG TAB PO (09:45)
[2019-01-11] MEDS: MAGNESIUM OXIDE 400 MG TAB PO ×2 (09:46→21:34)
[2019-01-11] MEDS: ATENOLOL 25 MG TAB PO (09:46)
[2019-01-11] MEDS: FAMOTIDINE 20 MG TAB PO ×2 (09:46→21:34)
[2019-01-11] MEDS: BENAZEPRIL 10 MG TAB PO (09:46)
[2019-01-11] MEDS: ASPIRIN (EC) 81 MG TAB PO (09:46)
[2019-01-11] MEDS: BALSAM PERU/CASTOR OIL 60 GM TUBE TOP ×2 (09:46→21:35)
[2019-01-11] MEDS: ENOXAPARIN 30 MG/0.3 ML SYG SC (09:47)
[2019-01-11] MEDS: ACETAMINOPHEN 325 MG TAB PO ×2 (10:59→18:39)
[2019-01-11] MEDS ORDERED: BALSAM PERU/CASTOR OIL 60 GM TUBE TOP (11:30)
[2019-01-11] MEDS: ATORVASTATIN 40 MG TAB PO (21:34)
[2019-01-12] MEDS: ACETAMINOPHEN 325 MG TAB PO ×3 (01:07→15:26)
[2019-01-12] MEDS: PANTOPRAZOLE (EC) 40 MG TAB PO (05:49)
[2019-01-12] MEDS: ATENOLOL 25 MG TAB PO (09:00)
[2019-01-12] MEDS: PETROLATUM 5 GM OINT TOP ×2 (09:09→20:24)
[2019-01-12] MEDS: BALSAM PERU/CASTOR OIL 60 GM TUBE TOP (09:09)
[2019-01-12] MEDS: ESCITALOPRAM 10 MG TAB PO (09:10)
[2019-01-12] MEDS: clonAZEPAM 0.5 MG TAB PO ×2 (09:10→20:24)
[2019-01-12] MEDS: BENAZEPRIL 10 MG TAB PO (09:10)
[2019-01-12] MEDS: LORAZEPAM 0.5 MG TAB PO (09:10)
[2019-01-12] MEDS: FAMOTIDINE 20 MG TAB PO ×2 (09:11→20:24)
[2019-01-12] MEDS: MAGNESIUM OXIDE 400 MG TAB PO ×2 (09:12→20:24)
[2019-01-12] MEDS: ASPIRIN (EC) 81 MG TAB PO (09:12)
[2019-01-12] MEDS: ENOXAPARIN 30 MG/0.3 ML SYG SC (09:15)
[2019-01-12] MEDS: NICOTINE (21 MG/24 HR) PATCH TRANSDERM (09:16)
[2019-01-12] MEDS: morphine 4 MG/ML VIAL IV (11:21)
[2019-01-12] MEDS: ATORVASTATIN 40 MG TAB PO (20:24)
== END 2019-01-12 21:00 | DRG 871 ==
LOC: 5EC 01-07 16:58 → E/R 08:05 → 6WM 01-05 15:15
DX: A41.9 Sepsis, unspecified organism (principal); J69.0 Pneumonitis due to inhalation of food and vomit; I21.A1 Myocardial infarction type 2; E44.0 Moderate protein-calorie malnutrition; J44.1 Chronic obstructive pulmonary disease with (acute) exacerbation; S02.40FA Zygomatic fracture, left side, initial encounter for closed fracture; N39.0 Urinary tract infection, site not specified; F17.200 Nicotine dependence, unspecified, uncomplicated; B37.9 Candidiasis, unspecified; E86.0 Dehydration; F41.9 Anxiety disorder, unspecified; F31.9 Bipolar disorder, unspecified; I10 Essential (primary) hypertension; G89.4 Chronic pain syndrome; I25.10 Atherosclerotic heart disease of native coronary artery without angina pectoris; E78.5 Hyperlipidemia, unspecified; B96.20 Unspecified Escherichia coli [E. coli] as the cause of diseases classified elsewhere; W18.30XA Fall on same level, unspecified, initial encounter; Z68.20 Body mass index [BMI] 20.0-20.9, adult; Y93.89 Activity, other specified; Y92.013 Bedroom of single-family (private) house as the place of occurrence of the external cause; Y99.8 Other external cause status; Z91.81 History of falling
CPT/HCPCS: 36415; 70450; 70486; 71045; 72125; 73110-LT; 73610; 80048; 80053; 81001; 82550; 82553; 82962; 83036; 83605; 83735; 84134; 84436; 84479; 84484; 85025; 87040-91; 87081; 87086; 93005; 93306; 96360; 97161; 99285-25